=== PATIENT | male | born 1950 | race Caucasian/White ===

== ENCOUNTER → 2016-06-19 | Outpatient (REF) | payer MEDICARE, OTHER ==
[2016-06-19 18:45] LABS: PERCENT SATURATION 24.8 % (19.7-37.4)
== END ==
LOC: M LAB REF 16:27
PROVIDERS: ATTEND Internal Medicine
DX: L03.116 Cellulitis of left lower limb (principal); D86.89 Sarcoidosis of other sites; D64.9 Anemia, unspecified

== ENCOUNTER → 2016-06-28 | Outpatient (REF) | payer MEDICARE, OTHER | LOC: M LAB REF 16:19 | PROVIDERS: ATTEND Internal Medicine | DX: N39.0 Urinary tract infection, site not specified (principal) ==

== ENCOUNTER → 2016-08-22 | Outpatient (REF) | payer MEDICARE, OTHER | LOC: M LAB REF 16:54 | PROVIDERS: ATTEND Nurse Practitioner Family | DX: N39.0 Urinary tract infection, site not specified (principal) ==

== ENCOUNTER → 2016-10-23 | Outpatient (CLI) | payer MEDICARE, OTHER ==
--- NOTE | 2016-10-23 16:24 | REP ---
Clinical: Follow up scrotal mass lesions. Technique: Real time linder scale and color Doppler evaluation using linear high frequency transducer. Comparison: 04/10/2016, 02/28/2015. Findings: Vascularity to the bilateral testicles and epididymi are normal and symmetric without evidence for torsion or infectious/inflammatory process. Small bilateral hydroceles noted along with stable bilateral epididymal cysts measuring up to roughly 4 mm and right sided varicoceles measuring 4.3 mm diameter. The right testicle measures 3.2 x 2.2 x 2.8 cm and again includes a stable 5 mm hypoechoic nodule with posterior shadowing. The left testicle measures 3.5 x 2.1 x 2.7 cm and again includes a stable 5 mm hypoechoic nodule. Impression: 1. Stable nodules in the bilateral testicles are unchanged compared to 02/28/2015. 2. Small hydroceles, stable epididymal cysts, and right-sided varicoceles again noted and essentially unchanged. 3. No new intratesticular or scrotal lesions are appreciated. Signed by Haresh Tai MD 10/23/2016 04:15 P
[2016-10-23 19:38] LABS: CALCIUM LEVEL 8.4 MG/DL (8.8-10.2); CREATININE FOR GFR 1.43 MG/DL (0.70-1.30); GLOMERULAR FILTRATION RATE 52.5 (>49)
[2016-10-23 19:50] LABS: MEAN CORPUSCULAR HEMOGLOBIN 33.5 pg (27.0-33.0); MEAN CORPUSCULAR VOLUME 98.4 fl (80.0-96.0); RED CELL DISTRIBUTION WIDTH 17.4 % (11.5-14.5); WHITE BLOOD COUNT 7.1 K/mm3 (4.0-10.0)
== END ==
LOC: M SMT 14:21
PROVIDERS: ATTEND Urology
DX: N50.9 Disorder of male genital organs, unspecified (principal)

== ENCOUNTER → 2016-10-24 | Outpatient (REF) | payer MEDICARE, OTHER | LOC: M SMT 17:23 | PROVIDERS: ATTEND Urology | DX: N50.9 Disorder of male genital organs, unspecified (principal) ==

== ENCOUNTER → 2017-01-17 | Outpatient (REF) | payer MEDICARE, OTHER ==
[~2017-01-17] MED LIST: ACET650T3 PO; ACID1CAP PO; ALPH0.156 OU; AMIT24CA7 PO; ANDR1.62 TD; BACT800T5 PO; CEFD1CAP8 PO; CONS10SO3 PO; CRAN250C2 PO; DURA75DI2 TD; FLOM5CAP PO; FOLI1TAB4 PO; GABA-283 PO; GLIM2TAB PO; GLIM4TAB PO; INFL10VL IV; INSUDET SC; LEVO75TA4 PO; MACR100C43 PO; MAGN400T5 PO; METH25IN5 INJ; MIRA3350 PO; NYST1POW9 TOP; OCEA0.654; OSTETAB4 PO; OXYC10TA12 PO; PENN1SOL2 TD; PRED20TA PO; PROB1TAB PO; RANI150T PO; SERT50TA PO; SITA50TAB PO; SPIR25TA2 PO; TIMO0.5S29 OU; TORS100T PO; ZANA4TAB PO
[2017-01-17 19:12] LABS: PERCENT SATURATION 20.9 % (19.7-50.0)
== END ==
LOC: M LAB REF 15:17
PROVIDERS: ATTEND Internal Medicine Medical Oncology
DX: Z87.440 Personal history of urinary (tract) infections (principal); N39.0 Urinary tract infection, site not specified; D64.9 Anemia, unspecified

== ENCOUNTER 2017-01-22 10:15 | Inpatient (IN) | payer MEDICARE, OTHER ==
[~2017-01-22] VITALS: Ht 180.3 cm; Wt 164.3 kg
[2017-01-22] MEDS ORDERED: NS 1,000 ML IV ONE (10:30)
[2017-01-22] MEDS ORDERED: DEXTROSE 50% 50 ML SYRINGE IV STA (10:31)
[2017-01-22 10:45] LABS: ABG BASE EXCESS 3.4 (-2.0-2.0); ABG HCO3 27.2 MEQ/L (22.0-26.0); ABG PARTIAL PRESSURE CO2 37.9 mmHg (35.0-45.0); ABG PARTIAL PRESSURE O2 230.4 mmHg (75.0-100.0); ABG STANDARD HCO3 27.5 MEQ/L (22.0-26.0); ABG TOTAL CO2 28.3 MEQ/L (23.0-31.0); ABG pH (ARTERIAL) 7.473 UNITS (7.350-7.450)
[2017-01-22 11:09] LABS: BASO % 0.2 % (0.0-1.0); EOS % 0.3 % (0.0-3.0); LYMPH % 5.9 % (24.0-44.0); MEAN CORPUSCULAR HEMOGLOBIN 36.3 pg (27.0-33.0); MEAN CORPUSCULAR HGB CONC 32.9 g/dl (32.0-36.5); MONO # 0.1 10^3/uL (0.0-0.8); NEUTROPHILS # 5.3 10^3/uL (1.8-7.7); PLATELET COUNT, AUTOMATED 104 10^3/uL (150-450); RED CELL DISTRIBUTION WIDTH 15.7 % (11.5-14.5); WHITE BLOOD COUNT 5.9 10^3/uL (4.0-10.0)
[2017-01-22 11:13] LABS: INR 1.19
[2017-01-22 11:19] LABS: ADD MORPHOLOGY? YES; LYMPH # 0.4 10^3/uL (1.5-4.5); MEAN CORPUSCULAR VOLUME 110.3 fl (80.0-96.0); NEUTROPHILS % 90.6 % (36.0-66.0)
[2017-01-22 11:26] LABS: ALBUMIN 2.7 GM/DL (3.2-5.2); ALBUMIN/GLOBULIN RATIO 0.77 (1.00-1.93); ALKALINE PHOSPHATASE 52 U/L (45-117); ALT/SGPT 22 U/L (12-78); AMYLASE 35 U/L (25-115); ANION GAP 8 MEQ/L (8-16); AST/SGOT 12 U/L (15-37); BILIRUBIN,DIRECT 0.2 MG/DL (0.0-0.2); BLOOD UREA NITROGEN 49 MG/DL (7-18); CALCIUM LEVEL 8.3 MG/DL (8.8-10.2); CARBON DIOXIDE LEVEL 27 MEQ/L (21-32); CHLORIDE LEVEL 109 MEQ/L (98-107); CREATININE FOR GFR 1.22 MG/DL (0.70-1.30); GLOMERULAR FILTRATION RATE > 60.0 (>49); GLUCOSE, FASTING 62 MG/DL (80-110); POTASSIUM SERUM 2.9 MEQ/L (3.5-5.1); SODIUM LEVEL 144 MEQ/L (136-145); TOTAL PROTEIN 6.2 GM/DL (6.4-8.2)
--- NOTE | 2017-01-22 11:30 | REP ---
CT Head without contrast HISTORY: Altered mental status COMPARISON: 04/09/2011 Areas of decreased attenuation are present in the periventricular and subcortical white matter. This represents small-vessel ischemic disease. There is no intraparenchymal hemorrhage, acute infarct, mass or midline shift. The ventricular system and cortical sulci are dilated consistent with moderate volume loss. There is no extra cerebral collection. There is no fracture. Mucosal thickening is present in the ethmoid sinuses. IMPRESSION: 1. Small vessel ischemic disease. 2. Moderate volume loss. Signed by Jamie Gunter MD 01/22/2017 11:21 A
--- NOTE | 2017-01-22 11:39 | REP ---
CHEST SINGLE VIEW: AP portable view of the chest is performed and compared to a prior study of 12/19/2012. The film is obtained using AP supine technique, which magnifies the cardiomediastinal silhouette and also causes mild prominence of the pulmonary vasculature. There is calcification and ectasia of the thoracic aorta. No infiltrate is seen in either lung. There is mild elevation of the right hemidiaphragm. IMPRESSION: No evidence of acute infiltrate. Signed by David Rojas MD 01/22/2017 05:22 P
[2017-01-22] MEDS ORDERED: LEVO75TA4 PO (11:44)
[2017-01-22] MEDS ORDERED: FLOM5CAP PO (11:44)
[2017-01-22] MEDS ORDERED: CRAN250C2 PO (11:44)
[2017-01-22] MEDS ORDERED: INSUDET SC (11:44)
[2017-01-22] MEDS ORDERED: DURA75DI2 TD (11:44)
[2017-01-22] MEDS ORDERED: SERT50TA PO (11:44)
[2017-01-22] MEDS ORDERED: RANI150T PO (11:44)
[2017-01-22] MEDS ORDERED: NYST1POW9 TOP (11:44)
[2017-01-22] MEDS ORDERED: GABA-283 PO (11:44)
[2017-01-22] MEDS ORDERED: ALPH0.156 OU (11:44)
[2017-01-22] MEDS ORDERED: SITA50TAB PO (11:44)
[2017-01-22] MEDS ORDERED: ZANA4TAB PO (11:44)
[2017-01-22] MEDS ORDERED: SPIR25TA2 PO (11:44)
[2017-01-22] MEDS ORDERED: PENN1SOL2 TD ×2 (11:44→13:18)
[2017-01-22] MEDS ORDERED: INFL10VL IV (11:44)
[2017-01-22] MEDS ORDERED: GLIM4TAB PO (11:44)
[2017-01-22] MEDS ORDERED: CONS10SO3 PO (11:44)
[2017-01-22] MEDS ORDERED: OXYC10TA12 PO (11:44)
[2017-01-22] MEDS ORDERED: AMIT24CA7 PO (11:44)
[2017-01-22] MEDS ORDERED: PRED20TA PO (11:44)
[2017-01-22] MEDS ORDERED: GLIM2TAB PO (11:44)
[2017-01-22] MEDS ORDERED: OSTETAB4 PO (11:44)
[2017-01-22] MEDS ORDERED: TORS100T PO (11:44)
[2017-01-22] MEDS ORDERED: TIMO0.5S29 OU (11:44)
[2017-01-22] MEDS ORDERED: ANDR1.62 TD (11:44)
[2017-01-22] MEDS ORDERED: FOLI1TAB4 PO (11:44)
[2017-01-22] MEDS ORDERED: BACT800T5 PO (11:44)
[2017-01-22] MEDS ORDERED: PROB1TAB PO (11:44)
[2017-01-22] MEDS ORDERED: KCL 10MEQ IN 100ML SWI (KRUN) 10 MEQ in APPROPRIATE DILUENT 1 EA IV ONE ×2 (13:00)
[2017-01-22] MEDS ORDERED: MIRA3350 PO (13:07)
[2017-01-22] MEDS ORDERED: ACID1CAP PO (13:07)
[2017-01-22] MEDS ORDERED: ACET650T3 PO (13:07)
[2017-01-22] MEDS ORDERED: MAGN400T5 PO (13:07)
[2017-01-22] MEDS ORDERED: MACR100C43 PO (13:08)
[2017-01-22 13:15] VITALS: O2SAT 97
[2017-01-22] MEDS ORDERED: OCEA0.654 (13:16)
--- NOTE | 2017-01-22 13:18 | HPEPDOC ---
[facility] Medical History & Physical Date of Admission Jan 22, 2017 History and Physical ATTENDING: Dr. Birch PCP: Dr Sierra CC: Pt was found unresponsive at home. HPI: 66yoM who was found unresponsive at home after an unknown amount of time. EMS summoned and brought to ED for evaluation. Pt was obtunded on arrival to ED. Pt will briefly arouse and answer a few questions. Pt was initially noted with BS of 68, improved S/P dextrose IV. Noted with BP 80s systolic, now improved 90s-100s with IVF x 1 liter in ED. Temp initially 100.4, decreased to 99.4. Denies pain, SOB. Has no specific complaints. Pt son is at bedside and states he has had three episodes similar to this this year with severe UTI. Pt has been hospitalized for same issue at [facility] in [place]. Pt son states he has home health aides 18-20 hrs per day, takes care of him as well but she is also brought to the ED today. Pt was advised to CIC as per Dr Gregg when seen there 01/03/17. Was also noted to have UTI 01/17/17 E Coli and was placed on Macrobid. Pt son unaware of any recent fevers, chills, weakness, fatigue, TIWARI, CP, SOB, cough, palpitations, abdominal pain, N/V/D or changes in bowel habits. Pt has had urinary retention and son states he was not sure status of CIC. Pt with chronic constipation. Upon presentation to the hospital the patient was found to have UTI, thus the hospitalist team was consulted. PMHx: GERD NEPHROLITHIASIS H/O Chronic UTI/Recurrent UTI. HUDSON/CPAP RBBB NEUROPATHY Chronic back pain/Spinal Stenosis Chronic pain NEUROSARCOIDOSIS. Follows with Neurology [facility]/Dr Whaley H/O TIA IDDM AMYLODOSIS urinary retention, CIC as per Dr Gregg. RLE ulcer. Stillerman BPH Non ambulatory. Uses lift at home. Glaucoma Hypomagnesemia Chronic constipation depression PSHX: LASER LITHOTRIPSY 2006 UMBILICAL HERNIORRHAPHY 2005 L KNEE REPLACEMENT 2007 RT CARPAL TUNNEL RELEASE 2009 LUMBAR PUNCTURE 12/2012 EGD Mayra 05/10. Gastritis. Colonoscopy Mayra 05/10. Adenomatous polyp. SOCHX: Resides in: At home with , [employer] 18-20 hrs per day. 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 Siblings: Alive, well Children: Alive, well Unexpected deaths due to medical reasons: None. ROS: History is taken from the Pt's son, Pt provided limited responses at this time. PE: GEN: 66yoM, appears stated age. Morbidly obese. No acute distress resting on the stretcher. He is sleeping but arouses to questions and is oriented to person and place currently. He will answer a few questions with short replies. HEENT: Normocephalic, atraumatic. Pupils are equal, round, and reactive to light. Extraocular movements are intact. No nystagmus appreciated. Sclera are nonicteric. Conjunctiva without injection. Nose midline. No facial asymmetry.Dry mucous membranes. Dentition poor. Pharynx dry appearing. Neck supple, trachea midline. No lymphadenopathy or thyromegaly appreciated. CHEST: Regular rate and rhythm, +S1, +S2 LUNGS: Decreased BS bilaterally but clear. No wheezes, rales, or rhonchi. Breathing appears symmetric and easy. No accessory muscle use. ABD: Obese, Round, soft, Mild TTP suprapubic area, non-distended. +Bowel sounds throughout. No rebound or guarding. Barraza in place. EXT: No lower extremity edema appreciated. SKIN: Pt with ecchymotic area left shoulder. Skin tears noted LLE. Skin ulcer RLE, healing (follows with Dr Huang). NEURO: Alert and oriented. No focal deficits appreciated. CT head 1. Small vessel ischemic disease. 2. Moderate volume loss. CXR No evidence of acute infiltrate. EKG: SB, PVC, LAD, RBBB. BLOOD CULTURES: x 2 pending UC pending. A&P: 66yoM who was found unresponsive at home after an unknown amount of time. EMS summoned and brought to ED for evaluation. Pt will briefly arouse and answer a few questions. Denies pain, SOB. Has no specific complaints. Pt son is at bedside and states he has had three episodes similar to this this year with severe UTI. Pt has been hospitalized for same issue at [facility] in [place]. 1. The patient will be admitted to PCU for at least [address] Butler's service. Pt is discussed with Dr Saba. 2. UTI/Sepsis. UC/BC pending. IVF x 1 liter in ED, continue with IVF at 75cc/ hr. Rocephin 1 gm IV Q24 hrs, first dose given in ED. UC E Coli noted 01/17/17 sensitive to Rocephin. Trend CRP. 3. H/O Nephrolithiasis. Renal U/S pending (R/O obstruction). 4. Hypokalemia. S/P IV and po supplement. Rechk BMP at 6 pm. Add mag level to labs. 5. Urinary retention. Barraza. Pt is on BPH as outpt. Instructed for CIC as per Urology. 6. IDDM. PO meds on hold. CC diet. Levemir reduced to 15 u PM/SSI. 7. Hypothyroid. Continue supplement. TSH pending. 8. chronic pain. Continue Fentanyl patch. Hold Gabapentin/Oxycodone/Zanaflex temporarily. 9. M Obesity. Complicates care. 10. LE skin tears/H/O Ulcer RLE. Wound care. 11. HUDSON. CPAP with home settings. 12. Hypomag. Cont po supplement. Add mag level. 13. Neurosarcoidosis. Follows with Neurology [facility]/Dr Whaley. 14. CHF. Hold Aldactone and Torsemide currently. Caution with IVF. 15. Glaucoma. Cont outpt regimen. 16. Anemia. Appears to be chronic however trending downward from Hgb 13s 10/12, to 10 11/12 to currently 8.1. Recheck CBC at 6 PM. Add peripheral smear. Iron studies completed 01/17/17. Add B12/folate to labs. Stool OB. Monitor Hgb. [place]/ EGD 05/10, Mayra. 17. Chronic constipation. Continue bowel care. 18. Depression. Zoloft. DVT prophylaxis. The patient is a Full code. Attending Update/Attestation: Patient found to have bilateral ureteral calculi with bilateral hydronephrosis on Renal U/S and CT Scan of the Abd--Urology contacted, patient will be taken for ureteral stent placement this evening with Dr. Lassiter. Vital Signs Vital Signs Date Time Temp Pulse Resp B/P (MAP) Pulse Ox O2 Delivery O2 Flow Rate FiO2 01/22/17 13:15 97 Nasal Cannula 3.0 01/22/17 12:59 97 01/22/17 12:32 99.4 106/63 (77) 01/22/17 12:15 86 01/22/17 10:17 24 Laboratory Data Labs 24H Laboratory Tests 2 01/22/17 10:30: Bedside Gl[facility]) 68L, Blood Gas Bicarbonate Standard 27.5H, Arterial Blood pH 7.473H, Arterial Blood Partial Pressure CO2 37.9, Arterial Blood Partial Pressure O2 230.4H, Arterial Blood Total CO2 28.3, Arterial Blood HCO3 27.2H, Arterial Blood Base Excess 3.4H, Arterial Blood Oxygen Saturation 99.5H 01/22/17 10:35: White Blood Count 5.9, Red Blood Count 2.23L, Hemoglobin 8.1L, Hematocrit 24.6L , Mean Corpuscular Volume 110.3H, Mean Corpuscular Hemoglobin 36.3H, Mean Corpuscular Hemoglobin Concent 32.9, Red Cell Distribution Width 15.7H, Platelet Count 104L, Neutrophils (%) (Auto) 90.6H, Lymphocytes (%) (Auto) 5.9L, Monocytes (%) (Auto) 2.0, Eosinophils (%) (Auto) 0.3, Basophils (%) (Auto) 0.2, Neutrophils # (Auto) 5.3, Lymphocytes # (Auto) 0.4L, Monocytes # (Auto) 0.1, Eosinophils # (Auto) 0.0, Basophils # (Auto) 0.0, Immature Granulocyte # (Auto) 0.1H, Nucleated Red Blood Cells % (auto) 0.5H, Platelet Estimate DECREASED, Macrocytosis 1+, Prothrombin Time 15.3H, Prothromb Time International Ratio 1.19 , Activated Partial Thromboplast Time 32.3, Anion Gap 8, Glomerular Filtration Rate > 60.0, Lactic Acid Level 0.8, Calcium Level 8.3L, Aspartate Amino Transf ( AST/SGOT) 12L, Alanine Aminotransferase (ALT/SGPT) 22, Alkaline Phosphatase 52, Total Bilirubin 1.0, Direct Bilirubin 0.2, Ammonia 28, Total Creatine Kinase 12L , Creatine Kinase MB 1.0, Creatine Kinase MB Relative Index 8.33H, Troponin I 0.03, C-Reactive Protein, Quantitative 3.93H, Total Protein 6.2L, Albumin 2.7L, Albumin/Globulin Ratio 0.77L, Amylase Level 35 01/22/17 10:44: Urine Appearance HAZY, Urine Color YELLOW, Urine pH 5.0, Urine Specific [place] 1.008, Urine Protein NEGATIVE, Urine Glucose (UA) NEGATIVE, Urine Ketones NEGATIVE, Urine Urobilinogen 0.2, Urine Bilirubin NEGATIVE, Urine Leukocyte Esterase 3+H, Urine Blood NEGATIVE, Urine Nitrite NEGATIVE, Urine WBC (Auto) 52H , Urine RBC (Auto) 4H, Urine Hyaline Casts (Auto) 0, Urine Bacteria (Auto) 3+H, Urine Squamous Epithelial Cells 0, Urine Mucus (Auto) SMALL, Urine Sperm (Auto) 01/22/17 12:06: Bedside Glucose ([facility]) 107 CBC/BMP Laboratory Tests 01/22/17 10:35 Red Blood Count 2.23 L, Mean Corpuscular Volume 110.3 H, Mean Corpuscular Hemoglobin 36.3 H, Mean Corpuscular Hemoglobin Concent 32.9, Red Cell Distribution Width 15.7 H, Neutrophils (%) (Auto) 90.6 H, Lymphocytes (%) (Auto ) 5.9 L, Monocytes (%) (Auto) 2.0, Eosinophils (%) (Auto) 0.3, Basophils (%) ( Auto) 0.2, Neutrophils # (Auto) 5.3, Lymphocytes # (Auto) 0.4 L, Monocytes # ( Auto) 0.1, Eosinophils # (Auto) 0.0, Basophils # (Auto) 0.0 Microbiology Microbiology 01/22/17 Blood Culture, Received Pending 01/22/17 Blood Culture, Received Pending 01/22/17 Urine Culture, Received Pending Home Medications Scheduled (Androgel Pump) 1.62 % Gel, 4 DOSE TD DAILY APPLIED TO SHOULDERS (Amitiza) 24 Mcg Cap, 24 MCG PO DAILY (Osteo Bi-Flex Advanced Do) 1 Tab Tab, 2 TAB PO DAILY (Probiotic) 1 Tab Tab, 1 TAB PO DAILY (Acidophilus) 1 Cap Cap, 1 CAP PO DAILY (Pennsaid) 2 % Henna, 2 GRAMS TD QID (Methotrexate Sodium) Unknown Strength Inj, Unknown Dose INJ QWEEK Acetaminophen (Acetaminophen ER) 650 Mg Tab, 650 MG PO BID Brimonidine Tartrate 0.15% (Alphagan P) 0.15 % Henna, 1 DROP OU QHS Cranberry Extract (Cranberry) 250 Mg Cap, 250 MG PO DAILY Fentanyl (Duragesic) 75 Mcg/Hr Dis, 75 MCG TD Q3RD APPLIED TO RIGHT SHOULDER Folic Acid (Folic Acid) 1 Mg Tab, 1 MG PO 5XW MON,TUES,WED,SAT,SUN Gabapentin (Gabapentin) 400 Mg Cap, 1,600 MG PO BID Glimepiride (Glimepiride) 4 Mg Tab, 4 MG PO BID Infliximab Injection (Remicade) Unknown Strength Vial, Unknown Dose IV QMONTH Insulin Detemir (Levemir) 1 Units/0.01 Ml Susp, 35 UNITS SC QHS TITRATES DIRECTED, MDD=50 UNITS Lactulose (Constulose) 10 Gm/15 Ml Henna, 30 ML PO QHS Levothyroxine Sodium (Synthroid) 75 Mcg Tab, 75 MCG PO DAILY Magnesium Oxide (Magnesium Oxide 400) 400 Mg Tab, 800 MG PO DAILY Nitrofurantoin Monohydrate Mac (Macrobid) 100 Mg Cap, 100 MG PO BID STARTED 01/18 FOR 7 DAYS Polyethylene Glycol (Miralax) 1 Pow Pow, 17 GM PO QHS dilute in 8 ounces of water or juice Prednisone (Prednisone) 20 Mg Tab, 20 MG PO DAILY Ranitidine HCl (Ranitidine HCl) 150 Mg Tab, 1 TAB PO BID Sertraline Hcl (Sertraline HCl) 50 Mg Tab, 50 MG PO DAILY Sitagliptin (Januvia) 50 Mg Tab, 50 MG PO DAILY Sodium Chloride ([place] Nasal [place]) 0.65 % Spr, 2 SPRAY NA QHS EACH NOSTRIL Spironolactone (Spironolactone) 25 Mg Tab, 25 MG PO DAILY Tamsulosin Hydrochloride (Flomax) 0.4 Mg Cap, 0.4 MG PO QHS Timolol Maleate (Timolol Maleate) 0.5 % Henna, 1 DROP OU BID Tizanidine Hydrochloride (Zanaflex) 4 Mg Tab, 8 MG PO QHS Torsemide (Torsemide) 100 Mg Tab, 50 MG PO BID Trimethoprim/Sulfamethoxazole (Bactrim Ds 800-160 mg) 1 Tab Tab, 1 TAB PO 3XW TUES,THURS,SAT Scheduled PRN Nystatin (Nystatin Powder) 100,000 Unit/Gm Pow, 1 DOSE TOP for RASH Oxycodone HCl (Oxycodone HCl) 10 Mg Tab, 10 MG PO BID PRN for PAIN Allergies Coded Allergies: No Known Drug Allergy (Verified Allergy, Unknown, 08/01/12) Clindamycin (Verified Adverse Reaction, Unknown, DIARRHEA, 08/01/12) Lilia Allen Jan 22, 2017 13:18 EDMUND SABA MD Jan 22, 2017 19:37
[2017-01-22] MEDS ORDERED: METH25IN5 INJ (13:20)
[2017-01-22] MEDS ORDERED: cefTRIAXone SOD 1 GM in D5W MINI-BAG PLUS 50 ML IV ONE (13:30)
[2017-01-22] MEDS ORDERED: NS 1,000 ML IV SCH (14:00)
[2017-01-22] MEDS ORDERED: GLUCOSE 4 GM CHEW TABLET PO PRN (14:15)
[2017-01-22] MEDS ORDERED: GLUCAGON FOR INJ 1 MG VIAL (J1610) SC PRN (14:15)
[2017-01-22] MEDS ORDERED: DEXTROSE 50% 50 ML SYRINGE IV PRN (14:15)
[2017-01-22] MEDS ORDERED: NYSTATIN 100,000 UNITS/GM TOPICAL PWD 15 GM TOP PRN (14:15)
[2017-01-22 14:43] LABS: REASON FOR REVIEW COMPREHENSIVE REVIEW
[2017-01-22] MEDS: KCL 10MEQ IN 100ML SWI (KRUN) 10 MEQ in APPROPRIATE DILUENT 1 EA IV SCH ×6 (14:55→18:19)
[2017-01-22] MEDS ORDERED: POTASSIUM CHLORIDE 10 MEQ SR TABLET PO ONE ×2 (15:00→21:45)
[2017-01-22 15:30] LABS: MAGNESIUM LEVEL 2.1 MG/DL (1.8-2.4)
--- NOTE | 2017-01-22 15:54 | REP ---
Renal ultrasound: The kidneys are normal size. Right kidney measures 14.5 by 5.7 by 6.6 centimeters. Left kidney measures 15.4 x 7.0 x 7.8 cm. There is bilateral hydronephrosis. There are no renal masses or cysts. No calculi are identified. Bladder ultrasound: There is a Barraza catheter in the bladder is nondistended and cannot be evaluated. Impression: Bilateral hydronephrosis. Signed by David Ramos MD 01/22/2017 03:45 P
[2017-01-22 15:58] LABS: FOLATE 21.2 NG/ML (>5.4); VITAMIN B12 LEVEL 608 PG/ML (247-911)
[2017-01-22] MEDS ORDERED: HumaLOG INSULIN (NovoLOG) PER UNIT SC SCH ×2 (17:30→21:00)
[2017-01-22 17:43] VITALS: BP 136/61
--- NOTE | 2017-01-22 18:07 | REP ---
CT of the abdomen pelvis without IV or bowel contrast: The patient had bilateral hydronephrosis on ultrasound earlier today. There is marked left hydronephrosis and hydroureter. There are multiple calcifications in the distal left ureter, at least four. The largest calculus is the superior most calculus which measures 11 x 7 mm. There is a calculus in the distal right ureter measuring 90 by 5 mm. There is a Barraza catheter in the bladder. The bladder is collapsed. No bladder calculi are identified. There are multiple right renal calculi in the posterior kelly at the mid pole and total measuring 19 by 9 mm. There are no left renal calculi. No definite renal cysts are identified. The study is insensitive for renal masses in the absence of IV contrast. The visualized lung myers are unremarkable. The unenhanced hepatic parenchyma demonstrates a cyst posteriorly in the right lobe of the liver measuring 2.4 cm in diameter. The hepatic parenchyma is otherwise unremarkable. The spleen measures 16 cm craniocaudad length. There is splenomegaly. There is a low density or a 1 cm right adrenal nodule measuring CT density of -13 Hounsfield units, compatible with a benign adrenal adenoma. The left adrenal is unremarkable. The abdominal aorta is unremarkable. There is no bowel distension or obstruction. Pelvis: There is a large fecal impaction in the rectosigmoid colon. There is abundant fecal residue throughout the remainder of the colon. There is no ascites or adenopathy. There is abdominal pannus hanging inferiorly over the pubic symphysis. Impression: Bilateral ureteral calculi as described. Bilateral hydronephrosis. Nonobstructive right renal calculi. No left renal calculi. Splenomegaly. 1 cm benign adenoma in the right adrenal. Fecal impaction and abundant fecal residue throughout the colon. Barraza catheter in the bladder. Signed by David Ramos MD 01/22/2017 05:58 P
[2017-01-22 18:08] LABS: MEAN CORPUSCULAR HEMOGLOBIN 36.7 pg (27.0-33.0); MEAN CORPUSCULAR HGB CONC 33.1 g/dl (32.0-36.5); PLATELET COUNT, AUTOMATED 91 10^3/uL (150-450); RED CELL DISTRIBUTION WIDTH 15.9 % (11.5-14.5); WHITE BLOOD COUNT 4.9 10^3/uL (4.0-10.0)
[2017-01-22 18:12] LABS: MEAN CORPUSCULAR VOLUME 111.1 fl (80.0-96.0)
[2017-01-22] MEDS: SERTRALINE HCL 50 MG TAB PO SCH (18:17)
[2017-01-22] MEDS: ENOXAPARIN 40 MG/0.4 ML SYRINGE (J1650) SC SCH ×2 (18:17→18:21)
[2017-01-22] MEDS: MAGNESIUM OXIDE 400 MG TAB (MAG-OX) PO SCH (18:18)
[2017-01-22 18:48] LABS: ALBUMIN 2.7 GM/DL (3.2-5.2); ALBUMIN/GLOBULIN RATIO 0.93 (1.00-1.93); ALKALINE PHOSPHATASE 50 U/L (45-117); ALT/SGPT 22 U/L (12-78); ANION GAP 9 MEQ/L (8-16); AST/SGOT 18 U/L (15-37); BILIRUBIN,TOTAL 0.9 MG/DL (0.2-1.0); BLOOD UREA NITROGEN 46 MG/DL (7-18); CALCIUM LEVEL 7.8 MG/DL (8.8-10.2); CARBON DIOXIDE LEVEL 26 MEQ/L (21-32); CHLORIDE LEVEL 110 MEQ/L (98-107); CREATININE FOR GFR 1.21 MG/DL (0.70-1.30); GLOMERULAR FILTRATION RATE > 60.0 (>49); GLUCOSE, FASTING 156 MG/DL (80-110); POTASSIUM SERUM 3.5 MEQ/L (3.5-5.1); SODIUM LEVEL 145 MEQ/L (136-145); TOTAL PROTEIN 5.6 GM/DL (6.4-8.2)
[2017-01-22 20:00] VITALS: BP 122/63
[2017-01-22] MEDS: FENTANYL REMOVAL DOCUMENTATION MISC XX SCH (21:00)
[2017-01-22] MEDS ORDERED: LEVEMIR (INSULIN DETEMIR) 1 UNITS/0.01ML SC SCH ×2 (21:00)
[2017-01-22] MEDS: TAMSULOSIN 0.4 MG CAP PO SCH (21:46)
[2017-01-22] MEDS: ACETAMINOPHEN 650MG ER TAB (TYLENOL ARTHRITIS) PO SCH (21:46)
[2017-01-22] MEDS: FAMOTIDINE 20 MG TAB PO SCH (21:46)
[2017-01-22] MEDS: LACTULOSE 20 GM/30 ML SYRUP UD PO SCH (21:46)
[2017-01-22] MEDS: TIMOLOL MALEATE 0.5% OPHTH SOLN 5 ML OU SCH ×2 (21:47→22:20)
[2017-01-22] MEDS: SODIUM CHLORIDE NASAL 0.65% SPRAY BTL (OCEAN) SCH (21:47)
[2017-01-22] MEDS: BRIMONIDINE 0.15% OPHTH SOLN 5 ML OU SCH (21:47)
[2017-01-22] MEDS: MIRALAX *UNIT DOSE* 17GM PACKET PO SCH (21:47)
[2017-01-22] MEDS: fentaNYL 75 MCG/HR PATCH TD SCH (21:49)
[2017-01-22] MEDS: HEPARIN SOD (PORCINE) 5000 UNITS/ML VIAL SQ SCH (22:00)
--- NOTE | 2017-01-22 23:40 | SMCUROLCON ---
Urology Consultation General Date of Consultation 01/22/17 Reason For Consultation This patient is seen for General Weakness. History of Present Illness This is a 66 y/o M w/ a PMH significant for neurosarcoidosis, nephrolithiasis, HUDSON, and DM2, who presented to the ER today w/ complaints of generalized weakness. The patient was subsequently admitted to the hospitalist service and a CT A/P was performed and notable for b/l hydroureteronephrosis due to b/l obstructing distal ureteral stones. The patient denies flank or abdominal pain. He is a patient of Dr. Gregg, and his family has been performing CIC for urinary retention. He notes that he has a UTI and had been running fevers at home. Past Medical History Medical History see HPI Medications Current Medications Current Medications Acetaminophen (Tylenol Arthritis Er) 650 mg BID PO Last administered on 21:46; Start 01/22/17 at 21:00; Stop 02/21/17 at 20:59 Brimonidine Tartrate (Alphagan P 0.15%) 1 drop QHS OU Last administered on 01/22 21:47; Start 01/22/17 at 21:00; Stop 02/21/17 at 20:59 Ceftriaxone Sodium 1 gm/ Dextrose 50 ml @ 100 mls/hr Q24H IV ; Start 01/23/17 at 13:00; Stop 01/30/17 at 12:59 Dextrose (Dextrose 50%) 25 ml ASDIRECTED PRN IV SEE LABEL COMMENTS; Start 01/22 at 14:15; Stop 02/21/17 at 14:14 Dextrose (Dextrose 50%) 50 ml STAT STAT IV Last administered on 01/22/17 11: 02; Start 01/22/17 at 10:31; Stop 01/22/17 at 10:32; Status DC Enoxaparin Sodium (Lovenox) 40 mg DAILY SC ; Start 01/22/17 at 09:00; Stop 01/22 at 21:40; Status DC Famotidine (Pepcid) 20 mg BID PO Last administered on 01/22/17 21:46; Start at 21:00; Stop 02/21/17 at 20:59 Fentanyl (Duragesic) 75 mcg Q3D@2100 TD Last administered on 01/22/17 21:49; Start 01/22/17 at 21:00; Stop 01/29/17 at 20:59 Glucagon (Glucagon) 1 mg ASDIRECTED PRN SC SEE LABEL COMMENTS; Start 01/22/17 at 14:15; Stop 02/21/17 at 14:14 Glucose (Glucose) 16 GM ASDIRECTED PRN PO SEE LABEL COMMENTS; Start 01/22/17 at 14:15; Stop 02/21/17 at 14:14 Heparin Sodium (Porcine) (Heparin) 5,000 units Q8H SQ ; Start 01/22/17 at 22:00 ; Stop 01/27/17 at 21:59 Home Med (Med Rec Complete!) ASDIRECTED XX ; Start 01/22/17 at 13:30; Stop at 13:30; Status DC Insulin Detemir (Levemir Insulin) 7.5 units QHS SC Last administered on 22:14; Start 01/22/17 at 21:00; Stop 02/21/17 at 20:59 Insulin Detemir (Levemir Insulin) 7.5 units QHS SC ; Start 01/23/17 at 21:00; Stop 01/23/17 at 21:00; Status DC Insulin Detemir (Levemir Insulin) 15 units QHS SC ; Start 01/22/17 at 21:00; Stop 02/21/17 at 20:59; Status Cancel Insulin Human Lispro (HumaLOG INSULIN) See Protocol Table AC SC ; Start at 17:30; Stop 02/21/17 at 17:29 Insulin Human Lispro (HumaLOG INSULIN) See Protocol Table QHS SC ; Start at 21:00; Stop 02/21/17 at 20:59 Lactulose (Cephulac) 30 ml QHS PO Last administered on 01/22/17 21:46; Start 01/22/17 at 21:00; Stop 02/21/17 at 20:59 Levothyroxine Sodium (Synthroid) 75 mcg DAILY@0600 PO ; Start 01/23/17 at 06:00 ; Stop 02/22/17 at 05:59 Magnesium Oxide (Mag-Ox) 800 mg DAILY PO Last administered on 01/22/17 18:18; Start 01/22/17 at 09:00; Stop 02/21/17 at 08:59 Non-Formulary Medication ( See Comment Field Below ) SEE COMMENTS SECTION Q3D@2100 XX Last administered on 01/22/17 21:00; Start 01/22/17 at 21:00; Stop 01/29/17 at 20:59 Nystatin (Mycostatin Powder, Nystop) 1 dose BIDP PRN TOP RASH; Start 01/22/17 at 14:15; Stop 02/21/17 at 14:14 Polyethylene Glycol (Miralax) 1 pkt QHS PO Last administered on 01/22/17 21:47 ; Start 01/22/17 at 21:00; Stop 02/21/17 at 20:59 Potassium Chloride 10 meq/ IV Miscellaneous Supplies 100 ml @ 100 mls/hr Q1H IV Last administered on 01/22/17 18:19; Start 01/22/17 at 15:00; Stop at 17:59; Status DC Prednisone (Deltasone) 20 mg DAILY PO ; Start 01/23/17 at 09:00; Stop 02/22/17 at 08:59; Status Cancel Sertraline HCl (Zoloft) 50 mg DAILY PO Last administered on 01/22/17 18:17; Start 01/22/17 at 09:00; Stop 02/21/17 at 08:59 Sodium Chloride 1,000 ml @ 100 mls/hr Q10H IV Last administered on 01/22/17 14:36; Start 01/22/17 at 14:00; Stop 01/23/17 at 01:54 Sodium Chloride ([place] Nasal [place]) 2 spray QHS NA Last administered on 21:47; Start 01/22/17 at 21:00; Stop 02/21/17 at 20:59 Tamsulosin HCl (Flomax) 0.4 mg QHS PO Last administered on 01/22/17 21:46; Start 01/22/17 at 21:00; Stop 02/21/17 at 20:59 Timolol Maleate (Timoptic 0.5% Ophth [place]) 1 drop BID OU ; Start 01/22/17 at 21: 00; Stop 02/21/17 at 20:59 Allergies Allergies: Coded Allergies: No Known Drug Allergy (Verified Allergy, Unknown, 08/01/12) Clindamycin (Verified Adverse Reaction, Unknown, DIARRHEA, 08/01/12) Review of Systems General: Reports: Fatigue Constitutional: Reports: Fever Skin: Denies: Rash, Lesions, Breakdown, Nail Changes Pulmonary: Denies: Dyspnea, Cough Cardiovascular: Denies Chest Pain, Denies Palpitations Gastrointestinal: Denies: Nausea, Vomiting, Abdominal Pain Genitourinary: Reports: Retention Musculoskeletal: Denies: Neck Pain, Back Pain Neurological: Reports: Weakness Physical Examination General Exam: Alert ENT EXAM: Atraumatic Chest Exam: Clear to auscultation Heart Exam: Rate Normal, Regular Rhythm Skin Exam: Nl turgor and temperature Neuro Exam: Normal Speech Vital Signs/I&O Vital Signs Date Time Temp Pulse Resp B/P (MAP) Pulse Ox O2 Delivery O2 Flow Rate FiO2 01/22/17 22:19 98.7 72 20 136/61 96 Room Air 2.0 97 I&O- Last 24 Hours up to 6 AM 01/23/17 06:00 Intake Total 2970 ml Output Total 3370 ml Balance -400 ml Laboratory Data 24H Labs Laboratory Tests 2 01/22/17 10:30: Bedside Glucose (Misc Panel) 68L, Blood Gas Bicarbonate Standard 27.5H, Arterial Blood pH 7.473H, Arterial Blood Partial Pressure CO2 37.9, Arterial Blood Partial Pressure O2 230.4H, Arterial Blood Total CO2 28.3, Arterial Blood HCO3 27.2H, Arterial Blood Base Excess 3.4H, Arterial Blood Oxygen Saturation 99.5H 01/22/17 10:35: White Blood Count 5.9, Red Blood Count 2.23L, Hemoglobin 8.1L, Hematocrit 24.6L , Mean Corpuscular Volume 110.3H, Mean Corpuscular Hemoglobin 36.3H, Mean Corpuscular Hemoglobin Concent 32.9, Red Cell Distribution Width 15.7H, Platelet Count 104L, Neutrophils (%) (Auto) 90.6H, Lymphocytes (%) (Auto) 5.9L, Monocytes (%) (Auto) 2.0, Eosinophils (%) (Auto) 0.3, Basophils (%) (Auto) 0.2, Neutrophils # (Auto) 5.3, Lymphocytes # (Auto) 0.4L, Monocytes # (Auto) 0.1, Eosinophils # (Auto) 0.0, Basophils # (Auto) 0.0, Immature Granulocyte # (Auto) 0.1H, Nucleated Red Blood Cells % (auto) 0.5H, Platelet Estimate DECREASED, Macrocytosis 1+, Prothrombin Time 15.3H, Prothromb Time International Ratio 1.19 , Activated Partial Thromboplast Time 32.3, Anion Gap 8, Glomerular Filtration Rate > 60.0, Lactic Acid Level 0.8, Calcium Level 8.3L, Magnesium Level 2.1, Aspartate Amino Transf (AST/SGOT) 12L, Alanine Aminotransferase (ALT/SGPT) 22, Alkaline Phosphatase 52, Total Bilirubin 1.0, Direct Bilirubin 0.2, Ammonia 28, Total Creatine Kinase 12L, Creatine Kinase MB 1.0, Creatine Kinase MB Relative Index 8.33H, Troponin I 0.03, C-Reactive Protein, Quantitative 3.93H, Total Protein 6.2L, Albumin 2.7L, Albumin/Globulin Ratio 0.77L, Amylase Level 35, Vitamin B12 Level 608, Folate 21.2 01/22/17 10:44: Urine Appearance HAZY, Urine Color YELLOW, Urine pH 5.0, Urine Specific [place] 1.008, Urine Protein NEGATIVE, Urine Glucose (UA) NEGATIVE, Urine Ketones NEGATIVE, Urine Urobilinogen 0.2, Urine Bilirubin NEGATIVE, Urine Leukocyte Esterase 3+H, Urine Blood NEGATIVE, Urine Nitrite NEGATIVE, Urine WBC (Auto) 52H , Urine RBC (Auto) 4H, Urine Hyaline Casts (Auto) 0, Urine Bacteria (Auto) 3+H, Urine Squamous Epithelial Cells 0, Urine Mucus (Auto) SMALL, Urine Sperm (Auto) 01/22/17 12:06: Bedside Glucose (Misc Panel) 107 01/22/17 13:58: Differential Slide Review Report, Differential Pathologist's Review COMPREHENSIVE REVIEW, Peripheral Blood Smear Path Consult PERIPHERAL SMEAR 01/22/17 14:26: Bedside Glucose (Misc Panel) 90 01/22/17 17:50: Bedside Glucose (Misc Panel) 158H 01/22/17 17:54: Anion Gap 9, Glomerular Filtration Rate > 60.0, Blood Urea Nitrogen 46H, Creatinine 1.21, Sodium Level 145, Potassium Level 3.5#, Chloride Level 110H, Carbon Dioxide Level 26, Calcium Level 7.8L, Aspartate Amino Transf (AST/SGOT) 18, Alanine Aminotransferase (ALT/SGPT) 22, Total Creatine Kinase 25#L, Alkaline Phosphatase 50, Total Bilirubin 0.9, Total Protein 5.6L, Albumin 2.7L, Creatine Kinase MB 1.0, Creatine Kinase MB Relative Index 4.00, Troponin I 0.06# , Albumin/Globulin Ratio 0.93L 01/22/17 21:04: Bedside Glucose ([facility] Panel) 189H CBC/BMP Laboratory Tests 01/22/17 10:35 Red Blood Count 2.23 L, Mean Corpuscular Volume 110.3 H, Mean Corpuscular Hemoglobin 36.3 H, Mean Corpuscular Hemoglobin Concent 32.9, Red Cell Distribution Width 15.7 H, Neutrophils (%) (Auto) 90.6 H, Lymphocytes (%) (Auto ) 5.9 L, Monocytes (%) (Auto) 2.0, Eosinophils (%) (Auto) 0.3, Basophils (%) ( Auto) 0.2, Neutrophils # (Auto) 5.3, Lymphocytes # (Auto) 0.4 L, Monocytes # ( Auto) 0.1, Eosinophils # (Auto) 0.0, Basophils # (Auto) 0.0 01/22/17 17:54 Red Blood Count 2.26 L, Mean Corpuscular Volume 111.1 H, Mean Corpuscular Hemoglobin 36.7 H, Mean Corpuscular Hemoglobin Concent 33.1, Red Cell Distribution Width 15.9 H, Calcium Level 7.8 L, Aspartate Amino Transf (AST/SGOT ) 18, Alanine Aminotransferase (ALT/SGPT) 22, Total Creatine Kinase 25 #L, Alkaline Phosphatase 50, Total Bilirubin 0.9, Total Protein 5.6 L, Albumin 2.7 L 01/22/17 21:04 Microbiology Microbiology 01/22/17 Blood Culture, Received Pending 01/22/17 Blood Culture, Received Pending 01/22/17 Urine Culture, Received Pending Assessment This is a 66 y/o M admitted for generalized weakness, found to have b/l obstructing distal ureteral stones in the setting of a UTI. His WBC is normal and he is currently afebrile, but he is also on immunosuppressants for neurosarcoidosis. His Cr is at baseline at 1.2. Plan - agree w/ broad-spectrum antibiotics until cultures come back - will plan to take the patient to the OR tomorrow for b/l ureteral stent placement - please make NPO after midnight AKASH OJEDA MD Jan 22, 2017 23:40
[2017-01-23] VITALS (10 sets, daily range): BP systolic 130–150; BP diastolic 62–87
[2017-01-23 04:59] LABS: MEAN CORPUSCULAR HGB CONC 32.5 g/dl (32.0-36.5); PLATELET COUNT, AUTOMATED 89 10^3/uL (150-450); WHITE BLOOD COUNT 4.2 10^3/uL (4.0-10.0)
[2017-01-23 05:06] LABS: ADD MANUAL DIFFER YES; DIFF SLIDE NUMBER 70; MEAN CORPUSCULAR VOLUME 110.7 fl (80.0-96.0)
[2017-01-23 05:22] LABS: ALBUMIN 2.8 GM/DL (3.2-5.2); ALBUMIN/GLOBULIN RATIO 0.82 (1.00-1.93); ALKALINE PHOSPHATASE 47 U/L (45-117); ALT/SGPT 24 U/L (12-78); ANION GAP 7 MEQ/L (8-16); AST/SGOT 15 U/L (15-37); BILIRUBIN,TOTAL 0.8 MG/DL (0.2-1.0); BLOOD UREA NITROGEN 35 MG/DL (7-18); CARBON DIOXIDE LEVEL 26 MEQ/L (21-32); CHLORIDE LEVEL 113 MEQ/L (98-107); CREATININE FOR GFR 1.03 MG/DL (0.70-1.30); GLOMERULAR FILTRATION RATE > 60.0 (>49); GLUCOSE, FASTING 106 MG/DL (80-110); MAGNESIUM LEVEL 2.2 MG/DL (1.8-2.4); POTASSIUM SERUM 3.7 MEQ/L (3.5-5.1); SODIUM LEVEL 146 MEQ/L (136-145); TOTAL PROTEIN 6.2 GM/DL (6.4-8.2)
[2017-01-23 05:47] LABS: BASOPHILS 1 % (0-4)
[2017-01-23 05:48] LABS: ANISOCYTOSIS 1+; POLYCHROMASIA 1+
[2017-01-23] MEDS: HEPARIN SOD (PORCINE) 5000 UNITS/ML VIAL SQ SCH ×3 (06:00→21:43)
[2017-01-23] MEDS: HumaLOG INSULIN (NovoLOG) PER UNIT SC SCH ×5 (06:00→21:00)
[2017-01-23] MEDS: LEVOTHYROXINE 75MCG TABLET (0.075MG) PO SCH (06:36)
[2017-01-23] MEDS ORDERED: MORPHINE 2 MG/ML 1ML SYRINGE IV PRN (07:15)
--- NOTE | 2017-01-23 08:21 | REP ---
Portable chest, 07:45 p.m., single AP view, the patient semi upright: Comparison 01/22/2017. There is a focal small zone of atelectasis along the right cardiac margin inferiorly in the right lung. The lung myers otherwise clear. Cardiac size is enlarged. There is tubing superimposed over the heart, likely external to the patient. The shirley, mediastinum, bony thorax are unremarkable. Impression: Cardiomegaly. There is a small focal zone of atelectasis inferiorly in the right lung. Half Signed by David Ramos MD 01/23/2017 08:13 A
[2017-01-23] MEDS: SERTRALINE HCL 50 MG TAB PO SCH (08:48)
[2017-01-23] MEDS: FAMOTIDINE 20 MG TAB PO SCH ×2 (08:48→21:42)
[2017-01-23] MEDS: ACETAMINOPHEN 650MG ER TAB (TYLENOL ARTHRITIS) PO SCH ×2 (08:48→21:42)
[2017-01-23] MEDS: MAGNESIUM OXIDE 400 MG TAB (MAG-OX) PO SCH (08:48)
[2017-01-23] MEDS: TIMOLOL MALEATE 0.5% OPHTH SOLN 5 ML OU SCH (08:49)
[2017-01-23] MEDS ORDERED: predniSONE 20 MG TAB PO SCH (09:00)
--- NOTE | 2017-01-23 09:24 | ECGEPIP ---
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
[2017-01-23] MEDS ORDERED: CONRAY-60 60% 50ML VIAL (Q9961) As Ordered ONE ×3 (11:54→13:52)
[2017-01-23] MEDS ORDERED: LIDOCAINE 2% INJ 100 MG/5 ML SDV (FOR ANES.) As Ordered ONE (12:03)
[2017-01-23] MEDS ORDERED: METOCLOPRAMIDE INJ 10MG/2ML VIAL (J2765) As Ordered ONE (12:03)
[2017-01-23] MEDS ORDERED: PROPOFOL 200 MG/20 ML VIAL As Ordered ONE (12:03)
[2017-01-23] MEDS ORDERED: ONDANSETRON 4MG/2ML VIAL (J2405) As Ordered ONE (12:03)
[2017-01-23] MEDS ORDERED: MIDAZOLAM INJ 2 MG/2 ML VIAL (J2250) As Ordered ONE ×2 (12:04→13:44)
[2017-01-23] MEDS ORDERED: fentaNYL 100 MCG/2 ML INJECTION (J3010) As Ordered ONE ×2 (12:04→13:31)
[2017-01-23] MEDS ORDERED: cefTRIAXone SOD 1 GM VIAL (J0696) As Ordered ONE (12:26)
[2017-01-23] MEDS ORDERED: LIDOCAINE 2% 5ML JELLY UROJET As Ordered ONE (12:49)
[2017-01-23] MEDS ORDERED: cefTRIAXone SOD 1 GM in D5W MINI-BAG PLUS 50 ML IV SCH (13:00)
--- NOTE | 2017-01-23 14:38 | REP ---
Retrograde pyelogram: A series of nine intraoperative fluoroscopic images are performed during cystoscopy and bilateral ureteral stent placement. The final films demonstrate the proximal and distal pigtails of both right and left ureteral stents to be in satisfactory locations. Fluoroscopic exposure time is 2 minutes and 32 seconds. Intraoperative fluoroscopic views are performed with last image hold technology. These images require no additional radiation. Signed by David Ramos MD 01/23/2017 02:30 P
[2017-01-23] MEDS ORDERED: HumaLOG INSULIN (NovoLOG) PER UNIT As Ordered ONE (14:42)
[2017-01-23] MEDS ORDERED: PERCOCET 5MG/325MG TAB PO PRN (15:15)
[2017-01-23] MEDS ORDERED: LR 1,000 ML IV SCH (15:15)
[2017-01-23] MEDS ORDERED: HumaLOG INSULIN (NovoLOG) PER UNIT SC ONE (15:15)
--- NOTE | 2017-01-23 20:46 | IPN ---
DATE: 01/23/2017 Mr. Martines is awake, appropriately interactive, somewhat flattened affect, not complaining of any pain, chest pain, no shortness of breath, is not taking diet this morning, is currently nothing by mouth. Temperature 98.6, pulse 79, respiratory rate 18, blood pressure 130/79, 96%. Intake and output notable for a negative fluid balance of -130. Body mass index is 50.5. He is awake, appropriately interactive, allowing his son to speak for him much of the time. Neck is thick. Breathing is symmetrically diminished. I:E ratio is 1:3. He is speaking in sentences when he does speak, no accessory muscle use. Heart is distant sounding, normal S1, S2. He is not particularly tachycardic on exam. Abdomen soft, doughy, distended, nontender. White cell count 4.2, hemoglobin 8.1, and platelets of 89. BUN 35, creatinine 1.03, sodium is 146. CK and troponins have been negative times three. TSH is 2.19. My assessment is as follows: This is a 66-year-old with obstructive uropathy, nephrolithiasis, hydronephrosis. Plan is as follows: 1. Genitourinary (). The patient has bilateral hydronephrosis, planned for cystoscopy today. Underlying hydronephrosis and suspected urinary tract infection (UTI) and sepsis related to hydronephrosis is most likely the cause of his syncopal event. There is no further workup required prior to proceeding to cystoscopy. 2. The patient has diabetes and is on insulin which has been adjusted in this setting. 3. Patient has hypothyroidism. TSH within normal limits. 4. Patient has morbid obesity, which complicates care. 5. Patient has obstructive sleep apnea (HUDSON). He was wearing continuous positive airway pressure (CPAP) when I arrived this morning. 6. Patient has neurosarcoidosis. Follows at [facility] for that. 7. Patient has history of congestive heart failure (CHF). 8. Patient should be monitored in the progressive care unit (PCU) postoperatively. 9. I did discuss the case with his son at bedside, who will bring in the patient's chair from home, which gives him a little bit more comfort and mobility.
[2017-01-23] MEDS ORDERED: LEVEMIR (INSULIN DETEMIR) 1 UNITS/0.01ML SC SCH (21:00)
[2017-01-23] MEDS ORDERED: oxyCODONE 5MG TAB PO ONE (21:30)
[2017-01-23] MEDS: TAMSULOSIN 0.4 MG CAP PO SCH (21:42)
[2017-01-23] MEDS: LACTULOSE 20 GM/30 ML SYRUP UD PO SCH (21:42)
[2017-01-23] MEDS: LEVEMIR (INSULIN DETEMIR) 1 UNITS/0.01ML SC SCH (21:43)
[2017-01-23] MEDS: MIRALAX *UNIT DOSE* 17GM PACKET PO SCH (21:44)
[2017-01-23] MEDS: BRIMONIDINE 0.15% OPHTH SOLN 5 ML OU SCH (21:44)
[2017-01-23] MEDS: SODIUM CHLORIDE NASAL 0.65% SPRAY BTL (OCEAN) SCH (21:44)
--- NOTE | 2017-01-23 22:00 | ECGEPIP ---
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
[2017-01-24 00:04] VITALS: BP 137/70
[2017-01-24 04:00] VITALS: BP 173/88
[2017-01-24] MEDS: LEVOTHYROXINE 75MCG TABLET (0.075MG) PO SCH (05:46)
[2017-01-24] MEDS: HEPARIN SOD (PORCINE) 5000 UNITS/ML VIAL SQ SCH ×3 (05:46→22:00)
[2017-01-24 06:15] LABS: MEAN CORPUSCULAR HEMOGLOBIN 35.8 pg (27.0-33.0); MEAN CORPUSCULAR HGB CONC 32.2 g/dl (32.0-36.5); PLATELET COUNT, AUTOMATED 67 10^3/uL (150-450); RED CELL DISTRIBUTION WIDTH 15.9 % (11.5-14.5); WHITE BLOOD COUNT 6.1 10^3/uL (4.0-10.0)
[2017-01-24 06:16] LABS: ADD MANUAL DIFFER YES; DIFF SLIDE NUMBER 40; MEAN CORPUSCULAR VOLUME 111.2 fl (80.0-96.0)
[2017-01-24 06:38] LABS: ALBUMIN 2.5 GM/DL (3.2-5.2); ALBUMIN/GLOBULIN RATIO 0.74 (1.00-1.93); ALKALINE PHOSPHATASE 46 U/L (45-117); ALT/SGPT 20 U/L (12-78); ANION GAP 7 MEQ/L (8-16); AST/SGOT 14 U/L (15-37); BILIRUBIN,TOTAL 1.2 MG/DL (0.2-1.0); BLOOD UREA NITROGEN 22 MG/DL (7-18); CARBON DIOXIDE LEVEL 24 MEQ/L (21-32); CHLORIDE LEVEL 116 MEQ/L (98-107); CREATININE FOR GFR 0.93 MG/DL (0.70-1.30); GLOMERULAR FILTRATION RATE > 60.0 (>49); GLUCOSE, FASTING 134 MG/DL (80-110); POTASSIUM SERUM 3.4 MEQ/L (3.5-5.1); SODIUM LEVEL 147 MEQ/L (136-145); TOTAL PROTEIN 5.9 GM/DL (6.4-8.2)
[2017-01-24 07:26] LABS: ANISOCYTOSIS 1+; BASOPHILS 1 % (0-4)
[2017-01-24] MEDS: HumaLOG INSULIN (NovoLOG) PER UNIT SC SCH ×4 (07:30→21:00)
[2017-01-24 08:00] VITALS: BP 132/58
--- NOTE | 2017-01-24 08:10 | RO ---
DATE OF PROCEDURE: 01/23/2017 PREPROCEDURE DIAGNOSIS: Obstructing bilateral ureteral stones. POSTPROCEDURE DIAGNOSIS: Bilateral ureteral obstruction, bilateral ureteral stones. PROCEDURE: Cystoscopy, bilateral ureteroscopy, bilateral retrograde pyelogram with intraoperative interpretation of images, bilateral ureteral stent placements. SURGEON: Dr. Farhat Lassiter SALOON KEEPER: None. ANESTHESIA: MAC. OPERATIVE INDICATIONS: This is a 66-year-old male who presented to the hospital yesterday with generalized weakness. Notes he is on antibiotics for urinary tract infection diagnosed a few days ago. On CAT scan, he had bilateral moderate hydroureteronephrosis with bilateral distal ureteral stones. It was recommended he be brought to the operating room today for bilateral ureteral stent placement. DESCRIPTION OF PROCEDURE: The patient was brought to the operating room where MAC anesthesia was administered. Culture specific antibiotics were infused. He was then placed in dorsal lithotomy position and prepped and draped in the usual sterile fashion. A rigid cystoscope was inserted into the urethral meatus and advanced to the bladder. I then tried to advance a guidewire up the left collecting system and it kept curling in the distal ureter. At this point, I performed a ureteroscopy and of note this left ureter was extremely tortuous. I did see the stones. Ultimately, I was able to advance the ureteroscope up into the more proximal ureter after several minutes. A retrograde pyelogram was performed and was notable for a mild to moderate left hydroureteronephrosis. A wire was then advanced all the way up to the left collecting system. The ureteroscope was then removed and the wire was utilized to advance a 7 Romanian x 22-32 cm JJ ureteral stent up into the left collecting system. At this point, I focused on the right side. I tried to advance a wire up the right side. Similar to the left, the wire just curled in the distal ureter. I then went up the right ureter with a ureteroscope and it also was significantly tortuous. I was ultimately able to navigate my way up into the more proximal ureter and into the kidney. The retrograde pyelogram was performed and was notable for moderate severe right hydroureteronephrosis. The wire was then advanced all the way up into the right collecting system and the ureteroscope was removed. The wire was then utilized to advance a 7 Romanian x 22-32 cm JJ ureteral stent up the right collecting system. The wire was then removed and there were adequate curls of the stent in the right renal pelvis and in the bladder. Of note, we did obtain specimen of urine to send for culture as his urine appeared very cloudy. At this point, an 18 Romanian Barraza catheter was then inserted into the bladder and the balloon was filled with 10 mL of sterile water. The catheter was then connected to gravity drainage and this marked the conclusion of the procedure. The patient was then taken out of the dorsal lithotomy position, awakened from anesthesia and transported to the recovery room in stable condition. Estimated blood loss: 0 mL. Complications: None. Specimen: Urine culture. Plan: The patient's stents will remain in place and he will be kept on antibiotics here in the hospital. Once he is improved, he will be discharged home with the stents in place. He will have a followup in the urology clinic with Dr. Gregg to discuss any subsequent urologic treatment. Of note, I suspect that his ureteral obstruction is not actually from the stones, but much more likely from J hooking of the distal ureters potentially related to a high riding prostate. If this is the case, he might need chronic ureteral drainage. CARINE
--- NOTE | 2017-01-24 08:45 | IPNPDOC ---
Assessment/Plan Date Seen The patient was seen on 01/24/17. Patient Summary This is a 66 y/o M admitted for generalized weakness, found to have b/l obstructing distal ureteral stones in the setting of a UTI, now POD1 s/p cysto, b/l ureteroscopy, b/l ureteral stent placement. Plan/VTE VTE Prophylaxis Ordered?: No VTE Exclusion Mechanical Proph: N/A:VTE Prophy Ordered Plan/Urinary Catheter Reason for insertion/continuin: Critical Pt monitoring Plan - continue catheter to gravity drainage - antibiotics per primary team - no additional urologic interventions needed at this time - the urology office will call to schedule follow up w/ Dr. Gregg Subjective Review oF Systems Chief Complaint The patient is a 66-year-old male admitted with a reason for visit of General Weakness. Events since Last Encounter No acute events o/n. Objective Physical Examination General Exam: No Acute Distress Other physical findings catheter in place, draining clear urine Vital Signs/I&O Vital Signs Date Time Temp Pulse Resp B/P (MAP) Pulse Ox O2 Delivery O2 Flow Rate FiO2 01/24/17 08:00 98.4 80 18 132/58 (82) 98 NIPPV (BIPAP/CPAP) 01/23/17 22:13 2.0 97 Laboratory Data Labs 24H Laboratory Tests 2 01/23/17 09:56: Total Creatine Kinase 21L, Creatine Kinase MB 1.0, Creatine Kinase MB Relative Index 4.76H, Troponin I 0.02# 01/23/17 11:31: Bedside Glucose (Misc Panel) 211H 01/23/17 14:39: Bedside Glucose (Misc Panel) 210H 01/23/17 17:32: Bedside Glucose (Misc Panel) 159H 01/23/17 23:52: Bedside Glucose (Misc Panel) 139H 01/24/17 05:46: White Blood Count 6.1, Red Blood Count 2.15L, Hemoglobin 7.7L, Hematocrit 23.9L , Mean Corpuscular Volume 111.2H, Mean Corpuscular Hemoglobin 35.8H, Mean Corpuscular Hemoglobin Concent 32.2, Red Cell Distribution Width 15.9H, Platelet Count 67L, Neutrophils (%) (Auto) , Lymphocytes # (Auto) , Neutrophils 95H, Lymphocytes (Manual) 2L, Monocytes (Manual) 2, Basophils (Manual) 1, Anisocytosis 1+, Macrocytosis 2+, Platelet Estimate DECREASED, Anion Gap 7L, Glomerular Filtration Rate > 60.0, Blood Urea Nitrogen 22H, Creatinine 0.93, Sodium Level 147H, Potassium Level 3.4L, Chloride Level 116H, Carbon Dioxide Level 24, Calcium Level 8.0L, Aspartate Amino Transf (AST/SGOT) 14L, Alanine Aminotransferase (ALT/SGPT) 20, Alkaline Phosphatase 46, Total Bilirubin 1.2H, Total Protein 5.9L, Albumin 2.5L, C-Reactive Protein, Quantitative 8.64H, Albumin/Globulin Ratio 0.74L CBC/BMP Laboratory Tests 01/24/17 05:46 Red Blood Count 2.15 L, Mean Corpuscular Volume 111.2 H, Mean Corpuscular Hemoglobin 35.8 H, Mean Corpuscular Hemoglobin Concent 32.2, Red Cell Distribution Width 15.9 H, Neutrophils (%) (Auto) , Lymphocytes # (Auto) , Calcium Level 8.0 L, Aspartate Amino Transf (AST/SGOT) 14 L, Alanine Aminotransferase (ALT/SGPT) 20, Alkaline Phosphatase 46, Total Bilirubin 1.2 H, Total Protein 5.9 L, Albumin 2.5 L FSBS Laboratory Tests Test 01/23/17 11:31 01/23/17 14:39 01/23/17 17:32 01/23/17 23:52 Range/Units Bedside Glucose (Misc Panel) 211 210 159 139 80-115 MG/DL Microbiology Microbiology 01/22/17 Blood Culture - Preliminary, Resulted No growth after 24 hours . All specim... 01/22/17 Blood Culture - Preliminary, Resulted No growth after 24 hours . All specim... 01/23/17 Stool Occult Blood (LILIAN) - Final, Complete 01/23/17 Urine Culture, Received Pending 01/22/17 Urine Culture - Final, Complete Escherichia Coli AKASH OJEDA MD Jan 24, 2017 08:45
[2017-01-24] MEDS: oxyCODONE 5MG TAB PO SCH ×2 (09:00→22:37)
[2017-01-24] MEDS ORDERED: oxyCODONE 5MG TAB PO PRN (09:30)
[2017-01-24] MEDS ORDERED: POTASSIUM CHLORIDE 10 MEQ SR TABLET PO ONE (09:30)
[2017-01-24] MEDS: MAGNESIUM OXIDE 400 MG TAB (MAG-OX) PO SCH (09:37)
[2017-01-24] MEDS: ACETAMINOPHEN 650MG ER TAB (TYLENOL ARTHRITIS) PO SCH ×2 (09:37→22:17)
[2017-01-24] MEDS: FAMOTIDINE 20 MG TAB PO SCH ×2 (09:37→22:16)
[2017-01-24] MEDS: SERTRALINE HCL 50 MG TAB PO SCH (09:38)
[2017-01-24] MEDS: NYSTATIN 100,000 UNITS/GM TOPICAL PWD 15 GM TOP SCH ×2 (09:38→22:19)
[2017-01-24] MEDS: TIMOLOL MALEATE 0.5% OPHTH SOLN 5 ML OU SCH (09:38)
[2017-01-24 12:00] VITALS: BP 134/91
--- NOTE | 2017-01-24 12:53 | IPN ---
DATE: 01/24/2017 Mr. Martines is feeling well this morning. He has no complaints of chest pain or shortness of breath. He was helped with some oxycodone last night and we have adjusted his oxycodone dosing to home dosing. He is still having blood in the urine. Temperature 98.4, pulse 80, respiratory rate 18, blood pressure 132/58, 98% on BiPAP. Negative fluid balance of -1360. No bowel movements recorded. He is awake, appropriately interactive, pleasantly conversant. Mucous membranes moist. Neck supple. Body mass index (BMI) is 50.5. Breathing is distant sounding. No significant arrhythmia on the monitor. Heart is distant sounding. Normal S1, S2. Radial pulses 2+. Capillary refill is less than 2 seconds. Abdomen is prominent, nontender. White cell count 6.1, hemoglobin 7.7 dropped from 8.1, and platelets of 67 down from 104. Sodium 147, potassium 3.4, BUN 22, creatinine 0.93. My assessment is as follows: This is a 66-year-old with obstructive uropathy, nephrolithiasis and hydronephrosis. Plan is as follows: 1. Genitourinary (). The patient has been seen by Dr. Lassiter. Will discuss discharge plan with him as to how much more blood loss I can anticipate and whether or not he is safe to go home from a urologic standpoint. 2. The patient has acute blood anemia. Will get a unit of blood today. 3. The patient has hypothyroidism. 4. The patient has morbid obesity which complicates care. 5. The patient has obstructive sleep apnea. He has CPAP which he is compliant with. 6. The patient has neurosarcoidosis. 7. The patient has history of congestive heart failure (CHF) which seems to be compensated. 8. I did discuss the case with his son at bedside. He has 20 hours of home care per day. He is mainly bound to bed or his special wheelchair. They do have a lift system at home. We are considering possibly discharging him later today or tomorrow depending on what his urine does.
[2017-01-24 15:18] VITALS: BP 113/63
[2017-01-24] MEDS: cefTRIAXone SOD 1 GM in D5W 50 ML IV SCH (17:48)
[2017-01-24 20:00] VITALS: BP 151/76
[2017-01-24] MEDS: LACTULOSE 20 GM/30 ML SYRUP UD PO SCH (22:15)
[2017-01-24] MEDS: TAMSULOSIN 0.4 MG CAP PO SCH (22:16)
[2017-01-24] MEDS: SODIUM CHLORIDE NASAL 0.65% SPRAY BTL (OCEAN) SCH (22:18)
[2017-01-24] MEDS: BRIMONIDINE 0.15% OPHTH SOLN 5 ML OU SCH (22:18)
[2017-01-24] MEDS: LEVEMIR (INSULIN DETEMIR) 1 UNITS/0.01ML SC SCH (22:18)
[2017-01-24] MEDS: MIRALAX *UNIT DOSE* 17GM PACKET PO SCH (22:40)
[2017-01-25] VITALS: BP 138/77
[2017-01-25 04:00] VITALS: BP 134/69
[2017-01-25 05:55] LABS: MEAN CORPUSCULAR HEMOGLOBIN 35.1 pg (27.0-33.0); MEAN CORPUSCULAR HGB CONC 32.4 g/dl (32.0-36.5); MEAN CORPUSCULAR VOLUME 108.3 fl (80.0-96.0); PLATELET COUNT, AUTOMATED 63 10^3/uL (150-450); RED CELL DISTRIBUTION WIDTH 17.1 % (11.5-14.5); WHITE BLOOD COUNT 5.4 10^3/uL (4.0-10.0)
[2017-01-25] MEDS: HEPARIN SOD (PORCINE) 5000 UNITS/ML VIAL SQ SCH ×2 (06:00→13:32)
[2017-01-25 06:03] LABS: ADD MANUAL DIFFER YES; DIFF SLIDE NUMBER 32
[2017-01-25] MEDS: LEVOTHYROXINE 75MCG TABLET (0.075MG) PO SCH (06:24)
[2017-01-25 06:29] LABS: ALBUMIN 2.5 GM/DL (3.2-5.2); ALBUMIN/GLOBULIN RATIO 0.74 (1.00-1.93); ALKALINE PHOSPHATASE 47 U/L (45-117); ALT/SGPT 25 U/L (12-78); ANION GAP 7 MEQ/L (8-16); AST/SGOT 18 U/L (15-37); BILIRUBIN,TOTAL 0.8 MG/DL (0.2-1.0); BLOOD UREA NITROGEN 16 MG/DL (7-18); CALCIUM LEVEL 8.1 MG/DL (8.8-10.2); CARBON DIOXIDE LEVEL 23 MEQ/L (21-32); CHLORIDE LEVEL 116 MEQ/L (98-107); CREATININE FOR GFR 0.87 MG/DL (0.70-1.30); GLOMERULAR FILTRATION RATE > 60.0 (>49); GLUCOSE, FASTING 126 MG/DL (80-110); POTASSIUM SERUM 3.4 MEQ/L (3.5-5.1); SODIUM LEVEL 146 MEQ/L (136-145); TOTAL PROTEIN 5.9 GM/DL (6.4-8.2)
[2017-01-25 06:56] LABS: BASOPHILS 2 % (0-4); EOSINOPHILS 1 % (0-5); NUCLEATED RED BLOOD CELL 1 % (0-0)
[2017-01-25 06:57] LABS: ANISOCYTOSIS 1+; HYPERSEGMENTED POLYS 2+
[2017-01-25 08:00] VITALS: BP 131/90
[2017-01-25] MEDS: FAMOTIDINE 20 MG TAB PO SCH ×2 (08:30→20:44)
[2017-01-25] MEDS: MAGNESIUM OXIDE 400 MG TAB (MAG-OX) PO SCH (08:30)
[2017-01-25] MEDS: SERTRALINE HCL 50 MG TAB PO SCH (08:30)
[2017-01-25] MEDS: ACETAMINOPHEN 650MG ER TAB (TYLENOL ARTHRITIS) PO SCH (08:30)
[2017-01-25] MEDS: HumaLOG INSULIN (NovoLOG) PER UNIT SC SCH ×4 (08:32→20:49)
[2017-01-25] MEDS: oxyCODONE 5MG TAB PO SCH ×2 (08:32→20:44)
[2017-01-25] MEDS: NYSTATIN 100,000 UNITS/GM TOPICAL PWD 15 GM TOP SCH ×2 (08:32→20:50)
[2017-01-25] MEDS: TIMOLOL MALEATE 0.5% OPHTH SOLN 5 ML OU SCH (08:33)
[2017-01-25] MEDS ORDERED: POTASSIUM CHLORIDE 10 MEQ SR TABLET PO ONE (10:00)
[2017-01-25 11:40] VITALS: BP 146/65
[2017-01-25] MEDS: cefTRIAXone SOD 1 GM in D5W 50 ML IV SCH (12:50)
--- NOTE | 2017-01-25 15:58 | IPN ---
DATE: 01/25/2017 SUBJECTIVE: Mr. Martines is more interactive when I seem this morning. He is not complaining of pain, chest pain, or shortness of breath. OBJECTIVE: VITAL SIGNS: Temperature is 97.6, pulse 74, respiratory rate 20, blood pressure 131/90, 98% on his bilevel positive airway pressure (BiPAP). INTAKE AND OUTPUT: Notable for negative fluid status of minus 3180. No bowel movements thus far noted. GENERAL: He is awake, somewhat flattened affect. Slow to respond. NECK: Thick. LUNGS: Breathing is symmetrical, diminished. I:E ration 1:3. HEART: Distant sounding normal S1, S2. ABDOMEN: Soft, doughy, nontender, protuberant. LABORATORY DATA: White cell count 5.4, hemoglobin eight, platelets of 63, down from 104. Neutrophils 90. Sodium is 146, BUN 16, creatinine 0.87. ASSESSMENT: This is a 66-year-old with obstructive uropathy, nephrolithiasis, and hydronephrosis. PLAN: 1. Genitourinary (): The patient has been seen by Dr. Lassiter in consultation. He does not believe that the patient will have much more blood loss. I do have a plan to transfuse the patient another unit of blood today for acute blood loss, in preparation for creating a safe discharge plan. 2. The patient as acute blood loss anemia as above. 3. The patient has hypothyroidism. 4. The patient has morbid obesity which complicates care. 5. The patient has obstructive sleep apnea, is compliant with his continuous positive airway pressure (CPAP). 6. The patient has neurosarcoid. 7. The patient has a history of congestive heart failure which appears to be compensated. I did discuss this case with the patient's [id number] at bedside at some length this morning. I plan to return again this afternoon as they have asked to discuss the case some more, most likely with an eye toward getting him home hopefully tomorrow.
[2017-01-25 16:00] VITALS: BP 143/61
[2017-01-25] MEDS ORDERED: ACETAMINOPHEN TAB 650MG DOSE (2X325MG) PO PRN (16:30)
[2017-01-25] MEDS ORDERED: oxyCODONE 5MG TAB PO PRN (16:45)
[2017-01-25] MEDS ORDERED: FUROSEMIDE 40 MG/4 ML VIAL (J1940) IV ONE (17:00)
[2017-01-25 17:01] LABS: ABG BASE EXCESS -0.1 (-2.0-2.0); ABG HCO3 23.1 MEQ/L (22.0-26.0); ABG PARTIAL PRESSURE CO2 32.2 mmHg (35.0-45.0); ABG PARTIAL PRESSURE O2 96.7 mmHg (75.0-100.0); ABG STANDARD HCO3 24.4 MEQ/L (22.0-26.0); ABG TOTAL CO2 24.1 MEQ/L (23.0-31.0); ABG pH (ARTERIAL) 7.474 UNITS (7.350-7.450)
--- NOTE | 2017-01-25 18:01 | REP ---
HISTORY: Dyspnea COMPARISON: 01/22/2017, also portable. The technique utilized in obtaining the radiograph has magnified the cardiac silhouette and accentuated the interstitial markings. The examination is limited not only by portable technique, but secondary to significant motion artifact. A subtle basilar abnormality including a tiny amount of free air could be obscured by the technique and the artifact. There does appear to be gross cardiomegaly, status quo. I see no gross significant change compared to the 01/22/2017 exam. IMPRESSION: The exam is markedly limited as described above, but does not appear grossly changed from 01/22/2017. Consider repeat. Signed by Oleksandr Peck DO 01/28/2017 04:40 P
[2017-01-25 18:50] VITALS: BP 140/58
[2017-01-25] MEDS: LACTOBACILLUS ACIDOPHILUS CAP (BACID) PO SCH (20:44)
[2017-01-25] MEDS: TAMSULOSIN 0.4 MG CAP PO SCH (20:44)
[2017-01-25] MEDS: FENTANYL REMOVAL DOCUMENTATION MISC XX SCH (20:45)
[2017-01-25] MEDS: fentaNYL 75 MCG/HR PATCH TD SCH (20:45)
[2017-01-25] MEDS: LEVEMIR (INSULIN DETEMIR) 1 UNITS/0.01ML SC SCH (20:48)
[2017-01-25] MEDS: MIRALAX *UNIT DOSE* 17GM PACKET PO SCH (20:49)
[2017-01-25] MEDS: LACTULOSE 20 GM/30 ML SYRUP UD PO SCH (20:49)
[2017-01-25] MEDS: BRIMONIDINE 0.15% OPHTH SOLN 5 ML OU SCH (20:50)
[2017-01-25] MEDS: SODIUM CHLORIDE NASAL 0.65% SPRAY BTL (OCEAN) SCH (20:51)
[2017-01-26] VITALS: BP 165/85
[2017-01-26 04:00] VITALS: BP 135/63
[2017-01-26] MEDS: LEVOTHYROXINE 75MCG TABLET (0.075MG) PO SCH (06:21)
[2017-01-26 06:43] LABS: BASO % 0.2 % (0.0-1.0); EOS # 0.1 10^3/uL (0.0-0.50); EOS % 1.6 % (0.0-3.0); IMMATURE GRANULOCYTE % 0.7 % (0-0); LYMPH # 0.5 10^3/uL (1.5-4.5); LYMPH % 11.2 % (24.0-44.0); MEAN CORPUSCULAR HEMOGLOBIN 33.9 pg (27.0-33.0); MEAN CORPUSCULAR HGB CONC 32.5 g/dl (32.0-36.5); MEAN CORPUSCULAR VOLUME 104.1 fl (80.0-96.0); MONO # 0.2 10^3/uL (0.0-0.8); MONO % 4.1 % (0.0-5.0); NEUTROPHILS # 3.6 10^3/uL (1.8-7.7); NEUTROPHILS % 82.2 % (36.0-66.0); PLATELET COUNT, AUTOMATED 75 10^3/uL (150-450); RED CELL DISTRIBUTION WIDTH 19.1 % (11.5-14.5); WHITE BLOOD COUNT 4.4 10^3/uL (4.0-10.0)
[2017-01-26 07:05] LABS: ALBUMIN 2.5 GM/DL (3.2-5.2); ALBUMIN/GLOBULIN RATIO 0.96 (1.00-1.93); ALKALINE PHOSPHATASE 45 U/L (45-117); ALT/SGPT 27 U/L (12-78); ANION GAP 9 MEQ/L (8-16); AST/SGOT 18 U/L (15-37); BILIRUBIN,TOTAL 0.7 MG/DL (0.2-1.0); BLOOD UREA NITROGEN 12 MG/DL (7-18); CALCIUM LEVEL 7.7 MG/DL (8.8-10.2); CARBON DIOXIDE LEVEL 23 MEQ/L (21-32); CHLORIDE LEVEL 114 MEQ/L (98-107); CREATININE FOR GFR 0.81 MG/DL (0.70-1.30); GLOMERULAR FILTRATION RATE > 60.0 (>49); GLUCOSE, FASTING 125 MG/DL (80-110); POTASSIUM SERUM 3.5 MEQ/L (3.5-5.1); SODIUM LEVEL 146 MEQ/L (136-145); TOTAL PROTEIN 5.1 GM/DL (6.4-8.2)
[2017-01-26 07:48] VITALS: BP 124/65
[2017-01-26] MEDS ORDERED: SPIRONOLACTONE 25 MG TAB PO SCH (09:00)
[2017-01-26] MEDS ORDERED: TORSEMIDE (DEMADEX) 50 MG PER 1/2 TAB PO SCH (09:00)
[2017-01-26] MEDS: HumaLOG INSULIN (NovoLOG) PER UNIT SC SCH ×2 (10:07→12:04)
[2017-01-26] MEDS: MAGNESIUM OXIDE 400 MG TAB (MAG-OX) PO SCH (10:08)
[2017-01-26] MEDS: SERTRALINE HCL 50 MG TAB PO SCH (10:08)
[2017-01-26] MEDS: LACTOBACILLUS ACIDOPHILUS CAP (BACID) PO SCH (10:09)
[2017-01-26] MEDS: NYSTATIN 100,000 UNITS/GM TOPICAL PWD 15 GM TOP SCH (10:10)
[2017-01-26] MEDS: TIMOLOL MALEATE 0.5% OPHTH SOLN 5 ML OU SCH (10:10)
[2017-01-26] MEDS: FAMOTIDINE 20 MG TAB PO SCH (10:10)
[2017-01-26] MEDS: oxyCODONE 5MG TAB PO SCH (10:10)
[2017-01-26] MEDS ORDERED: CEFD1CAP8 PO (11:56)
[2017-01-26 12:01] VITALS: BP 140/75
[2017-01-26] MEDS: cefTRIAXone SOD 1 GM in D5W 50 ML IV SCH (12:04)
--- NOTE | 2017-01-27 10:04 | DSES ---
DATE OF ADMISSION: 01/22/2017 DATE OF DISCHARGE: 01/26/2017 SPECIALISTS INVOLVED IN CARE: Dr. Farhat Lassiter. COMPLICATIONS: No complications during his stay. PROCEDURES PERFORMED DURING STAY: Include: Cystoscopy and stent placement. DISCHARGE DIAGNOSES: 1. E. coli urinary tract infection, sepsis, present on admission. 2. Obstructive uropathy with obstructing distal ureteral stones. 3. Obstructive sleep apnea (HUDSON) on CPAP. 4. Right bundle branch block. 5. Chronic back pain. 6. Spinal stenosis. 7. Neurosarcoidosis. 8. History of transient ischemic attack (TIA). 9. Insulin dependent diabetes. 10. Amyloidosis. 11. Urinary retention. 12. Chronic lower extremity ulcers. 13. Benign prostatic hypertrophy (BPH). 14. Glaucoma. 15. Hypomagnesemia. 16. Chronic constipation. 17. Depression. SUMMARY OF HOSPITALIZATION: This is a 66-year-old who was found unresponsive at home. He was brought to the hospital for evaluation, found to be febrile with a urinary tract infection, was noted to have bilateral hydronephrosis on renal ultrasound with bilateral ureteral calculi. He was seen in consultation by Dr. Lassiter who has taken the patient and two cystoscopy stents were placed. Urinary catheter was placed which is going to be present at the time of discharge. He did require 2 units of blood while hospitalized as he was having some hematuria, which was improving at the time of discharge. His mental status was waxing and waning. His fluid status was adjusted and eventually returned back to a semblance of his baseline. Plan is for discharge today. He is making jokes. No complaints of chest pain. No shortness of breath. Temperature 97, pulse 90, respiratory rate 18, blood pressure 140/75, 98%. He is morbidly obese with a body mass index (BMI) of 50.5. Breathing is symmetrically diminished. Heart is distant sounding. Abdomen is soft, doughy, nontender. Barraza catheter is draining pink urine. White cell count 4.4, hemoglobin 8.3, and platelets of 75. BUN is 12, creatinine 0.8, sodium is 146. DISCHARGE INSTRUCTIONS: Include the followin. Followup with Dr. Sierra. Call her office for followup instructions on Saturday. 2. Dr. Gregg for followup instructions on Saturday as well. 3. Activity and diet as tolerated. DISCHARGE MEDICATIONS: - He was given a prescription for cefdinir 300 mg by mouth twice daily, #20. - Tylenol by mouth twice daily - acidophilus one capsule by mouth daily - Amitiza 24 mcg by mouth daily - Androgel transdermally - Alphagan P one drop each eye daily at bedtime - cranberry extract - fentanyl transdermal 75 mcg every third day - folic acid 1 mg five times a week - Neurontin 1600 mg by mouth twice daily - glimepiride 4 mg by mouth twice daily - Remicade every month - Levemir 35 units daily at bedtime - lactulose 30 mL daily at bedtime - Synthroid 75 mcg by mouth daily - magnesium oxide 800 mg by mouth daily - methotrexate weekly - nystatin topically as needed for rash - Osteo Bi-Flex as deemed necessary - oxycodone 10 mg by mouth twice daily - Pennsaid 2 grams transdermally four times daily - MiraLAX 17 grams by mouth daily at bedtime - prednisone 20 mg by mouth daily - probiotic one tablet by mouth daily - Zantac 150 mg by mouth daily - sertraline 50 mg by mouth daily - Januvia 50 mg by mouth daily - ocean nasal spray - spironolactone 25 mg by mouth daily - Flomax 0.4 mg by mouth daily at bedtime - timolol one drop each eye daily - Zanaflex 8 mg by mouth daily at bedtime - torsemide 100 mg by mouth twice daily Discontinue Macrobid. Discontinue Bactrim.
[2017-02-06 12:35] LABS: IMMATURE PLATELET FRACTION % 1.2 % (0.0-10.9)
== END 2017-01-26 16:36 | disposition home health service (06) | DRG 872 ==
LOC: EDBD 10:15 → M ED 10:15 → M ED INP 13:44 → M PCU 17:23
PROVIDERS: ADMIT Internal Medicine; ATTEND Internal Medicine
PROC: 0T768DZ Dilation of Right Ureter with Intraluminal Device, Via Natural or Artificial Opening Endoscopic (ICD-10-PCS; 2017-01-23)
PROC: 0T778DZ Dilation of Left Ureter with Intraluminal Device, Via Natural or Artificial Opening Endoscopic (ICD-10-PCS; 2017-01-23)
PROC: 30233N1 Transfusion of Nonautologous Red Blood Cells into Peripheral Vein, Percutaneous Approach (ICD-10-PCS; principal; 2017-01-24)
DX: A41.51 Sepsis due to Escherichia coli [E. coli] (principal); N39.0 Urinary tract infection, site not specified; N13.2 Hydronephrosis with renal and ureteral calculous obstruction; Z68.43 Body mass index [BMI] 50.0-59.9, adult; D62 Acute posthemorrhagic anemia; R65.20 Severe sepsis without septic shock; E66.01 Morbid (severe) obesity due to excess calories; G47.33 Obstructive sleep apnea (adult) (pediatric); F32.9 Major depressive disorder, single episode, unspecified; K59.00 Constipation, unspecified; E83.42 Hypomagnesemia; N40.0 Benign prostatic hyperplasia without lower urinary tract symptoms; E11.40 Type 2 diabetes mellitus with diabetic neuropathy, unspecified; I45.10 Unspecified right bundle-branch block; D86.89 Sarcoidosis of other sites; Z86.73 Personal history of transient ischemic attack (TIA), and cerebral infarction without residual deficits; H40.9 Unspecified glaucoma; Z79.899 Other long term (current) drug therapy; R31.9 Hematuria, unspecified; K21.9 Gastro-esophageal reflux disease without esophagitis; R33.9 Retention of urine, unspecified; I50.9 Heart failure, unspecified; Z79.4 Long term (current) use of insulin; E03.9 Hypothyroidism, unspecified

== ENCOUNTER → 2017-06-06 | Outpatient (REF) | payer MEDICARE, OTHER ==
[2017-06-06 20:40] LABS: FERRITIN 401 NG/ML (26-388); IRON (FE) 34 UG/DL (65-175); PERCENT SATURATION 12.9 % (19.7-50.0); TOTAL IRON BINDING CAPACITY 263 UG/DL (250-450)
== END ==
LOC: M LAB REF 18:45
DX: D86.9 Sarcoidosis, unspecified (principal)
CPT/HCPCS: 83550

== ENCOUNTER 2017-06-07 14:40 | Inpatient (IN) | payer MEDICARE, OTHER ==
[2017-06-07] MEDS: CEFEPIME HCL 1 GM in D5W MINI-BAG PLUS 50 ML IV (15:20)
[2017-06-07 15:32] LABS: VENOUS BASE EXCESS 2.2 (-2.0-2.0); VENOUS HCO3 27.9 MEQ/L (23.0-27.0); VENOUS O2 SATURATION 75.6 % (60.0-80.0); VENOUS PARTIAL PRESSURE CO2 48.6 mmHg (38.0-50.0); VENOUS PARTIAL PRESSURE O2 43.6 mmHg (30.0-50.0); VENOUS PH 7.377 UNITS (7.330-7.430); VENOUS TOTAL CO2 29.4 MEQ/L (24.0-28.0)
[2017-06-07 15:33] LABS: BASO % 0.2 % (0.0-1.0); EOS # 0.1 10^3/uL (0.0-0.50); EOS % 0.4 % (0.0-3.0); HEMATOCRIT 31.5 % (42.0-52.0); HEMOGLOBIN 10.2 g/dl (14.0-18.0); IMMATURE GRANULOCYTE % 1.3 % (0-3.0); LYMPH % 1.8 % (24.0-44.0); MEAN CORPUSCULAR HEMOGLOBIN 33.9 pg (27.0-33.0); MEAN CORPUSCULAR HGB CONC 32.4 g/dl (32.0-36.5); MEAN CORPUSCULAR VOLUME 104.7 fl (80.0-96.0); MONO # 0.4 10^3/uL (0.0-0.8); NEUTROPHILS # 11.7 10^3/uL (1.8-7.7); NEUTROPHILS % 93.3 % (36.0-66.0); PLATELET COUNT, AUTOMATED 103 10^3/uL (150-450); RED BLOOD COUNT 3.01 10^6/uL (4.30-6.10); RED CELL DISTRIBUTION WIDTH 17.4 % (11.5-14.5); WHITE BLOOD COUNT 12.5 10^3/uL (4.0-10.0)
[2017-06-07 15:47] LABS: PROTHROMBIN TIME 15.4 SECONDS (12.4-14.5)
[2017-06-07 15:48] LABS: PARTIAL THROMBOPLASTIN TIME 38.3 SECONDS (26.8-37.9)
[2017-06-07 15:57] LABS: LYMPH # 0.2 10^3/uL (1.5-4.5); POSITIVE DIFF POS FLAG
[2017-06-07 15:59] LABS: LACTIC ACID SEPSIS PROTOCOL 1.3 MMOL/L (0.4-2.0)
[2017-06-07 16:02] LABS: ALBUMIN 3.1 GM/DL (3.2-5.2); ALBUMIN/GLOBULIN RATIO 0.84 (1.00-1.93); ALKALINE PHOSPHATASE 76 U/L (45-117); ALT/SGPT 23 U/L (12-78); AMYLASE 27 U/L (25-115); ANION GAP 9 MEQ/L (8-16); AST/SGOT 13 U/L (7-37); BILIRUBIN,DIRECT 0.3 MG/DL (0.0-0.2); BILIRUBIN,TOTAL 1.1 MG/DL (0.2-1.0); BLOOD UREA NITROGEN 35 MG/DL (7-18); CALCIUM LEVEL 8.2 MG/DL (8.8-10.2); CARBON DIOXIDE LEVEL 28 MEQ/L (21-32); CHLORIDE LEVEL 101 MEQ/L (98-107); CPK CREATINE PHOSPHOKINASE 10 U/L (39-308); CREATININE FOR GFR 1.36 MG/DL (0.70-1.30); GLOMERULAR FILTRATION RATE 55.5 (>49); GLUCOSE, FASTING 147 MG/DL (70-100); POTASSIUM SERUM 3.7 MEQ/L (3.5-5.1); SODIUM LEVEL 138 MEQ/L (136-145); TOTAL PROTEIN 6.8 GM/DL (6.4-8.2); TROPONIN I < 0.02 NG/ML (< 0.10)
[2017-06-07] MEDS: DILUENT IV (16:16)
[2017-06-07] MEDS: NS IV (16:16)
[2017-06-07 16:32] LABS: APPEARANCE, URINE MANUAL CLOUDY (CLEAR); COLOR, URINE MANUAL LT YELLOW (YELLOW); MICROSCOPIC INDICATED? MAN YES (NO)
[2017-06-07 16:33] LABS: BILIRUBIN, URINE MANUAL NEGATIVE (NEGATIVE); BLOOD URINE MANUAL POSITIVE (NEGATIVE); GLUCOSE, URINE (UA) MANUAL NEGATIVE (NEGATIVE); KETONE, URINE MANUAL NEGATIVE (NEGATIVE); LEUKOCYTE ESTERASE, URINE MAN POSITIVE (NEGATIVE); NITRITE, URINE MANUAL NEGATIVE (NEGATIVE); PROTEIN, URINE MANUAL 1+ mg/dL (NEGATIVE); SPECIFIC GRAVITY,URINE MANUAL 1.015 (1.002-1.035); UROBILINOGEN, URINE MANUAL NORMAL (NORMAL)
[2017-06-07 16:35] LABS: BACTERIA, URINE SMALL AMOUNT; MICROSCOPIC EXAM UNSPUN; MUCUS, URINE SMALL AMOUNT (NEGATIVE)
[2017-06-07 16:36] LABS: SQUAMOUS EPITHELIAL CELL URINE NONE SEEN /hpf (SMALL AMT); TRANSITIONAL EPI CELLS, URINE SMALL AMOUNT /hpf
[2017-06-07 16:37] LABS: HYALINE CAST, URINE 0-1 /lpf (0-1)
[2017-06-07] MEDS ORDERED: DEXTROSE 50% 50 ML SYRINGE IV (20:00)
[2017-06-07] MEDS ORDERED: ONDANSETRON 4MG/2ML VIAL (J2405) IV (20:00)
[2017-06-07] MEDS ORDERED: NYSTATIN 100,000 UNITS/GM TOPICAL PWD 15 GM TOP (20:00)
[2017-06-07] MEDS ORDERED: GLUCOSE 4 GM CHEW TABLET PO (20:00)
[2017-06-07] MEDS ORDERED: GLUCAGON FOR INJ 1 MG VIAL (J1610) SC (20:00)
[2017-06-07] MEDS: SENOKOT S TAB PO (21:00)
[2017-06-07] MEDS: PREPARATION H OINTMENT (HEMORRHOID) PR (21:00)
[2017-06-07] MEDS: HumaLOG INSULIN (NovoLOG) PER UNIT SC (21:00)
[2017-06-07 21:41] LABS: CPK CREATINE PHOSPHOKINASE 8 U/L (39-308); FREE THYROXINE INDEX 1.9 % (1.4-3.8); T UPTAKE 31 % (33-40); THYROXINE (T4) 6.1 UG/DL (4.5-12.0); TROPONIN I < 0.02 NG/ML (< 0.10)
[2017-06-07 22:49] LABS: BEDSIDE GLUCOSE 195 MG/DL (80-115)
[2017-06-07] MEDS: HEPARIN SOD (PORCINE) 5000 UNITS/ML VIAL SC (22:56)
[2017-06-07] MEDS: LACTULOSE 20 GM/30 ML SYRUP UD PO (22:56)
[2017-06-07] MEDS: MIRALAX *UNIT DOSE* 17GM PACKET PO (22:57)
[2017-06-07] MEDS: FAMOTIDINE 20 MG TAB PO (22:57)
[2017-06-07] MEDS: TAMSULOSIN 0.4 MG CAP PO (22:57)
[2017-06-07] MEDS: GABAPENTIN 400 MG CAP PO (22:58)
[2017-06-07] MEDS: oxyCODONE 5MG TAB PO (22:58)
[2017-06-07] MEDS: LEVEMIR (INSULIN DETEMIR) 1 UNITS/0.01ML SC (22:59)
[2017-06-07] MEDS: AZITHROMYCIN INJ 500 MG, VIAL MATE ADAPTER 1 EACH in D5W 250 ML IV (23:00)
[2017-06-07] MEDS ORDERED: SLF 3 ML SYR IV (23:15)
[2017-06-07] MEDS: ACETAMINOPHEN 650MG ER TAB (TYLENOL ARTHRITIS) PO (23:18)
[2017-06-07] MEDS: tiZANidine 4 MG TAB PO (23:19)
[2017-06-07] MEDS: BRIMONIDINE 0.15% OPHTH SOLN 5 ML OU (23:19)
[2017-06-08] MEDS: CEFEPIME HCL 1 GM in D5W MINI-BAG PLUS 50 ML IV ×2 (04:02→15:08)
[2017-06-08 04:14] LABS: HEMATOCRIT 24.8 % (42.0-52.0); MEAN CORPUSCULAR HEMOGLOBIN 33.5 pg (27.0-33.0); MEAN CORPUSCULAR HGB CONC 32.3 g/dl (32.0-36.5); MEAN CORPUSCULAR VOLUME 103.8 fl (80.0-96.0); PLATELET COUNT, AUTOMATED 95 10^3/uL (150-450); RED BLOOD COUNT 2.39 10^6/uL (4.30-6.10); RED CELL DISTRIBUTION WIDTH 17.4 % (11.5-14.5); WHITE BLOOD COUNT 6.1 10^3/uL (4.0-10.0)
[2017-06-08 04:28] LABS: ANION GAP 8 MEQ/L (8-16); BLOOD UREA NITROGEN 37 MG/DL (7-18); C REACTIVE PROTEIN QUANTITATIV 6.64 MG/DL (0.00-0.30); CALCIUM LEVEL 7.6 MG/DL (8.8-10.2); CARBON DIOXIDE LEVEL 26 MEQ/L (21-32); CHLORIDE LEVEL 105 MEQ/L (98-107); CREATININE FOR GFR 1.05 MG/DL (0.70-1.30); GLOMERULAR FILTRATION RATE > 60.0 (>49); GLUCOSE, FASTING 144 MG/DL (70-100); MAGNESIUM LEVEL 2.3 MG/DL (1.8-2.4); POTASSIUM SERUM 3.6 MEQ/L (3.5-5.1); SODIUM LEVEL 139 MEQ/L (136-145)
[2017-06-08] MEDS: HEPARIN SOD (PORCINE) 5000 UNITS/ML VIAL SC (06:01)
[2017-06-08] MEDS: LEVOTHYROXINE 75MCG TABLET (0.075MG) PO (06:01)
[2017-06-08] MEDS: SLF 3 ML SYR IV ×3 (06:02→20:59)
[2017-06-08] MEDS: methylPREDNISolone INJ 125 MG/2 ML VIAL (J2930) IV ×3 (06:58→17:07)
[2017-06-08] MEDS: GABAPENTIN 400 MG CAP PO ×2 (08:16→20:58)
[2017-06-08] MEDS: ACETAMINOPHEN 650MG ER TAB (TYLENOL ARTHRITIS) PO ×2 (08:17→20:58)
[2017-06-08] MEDS: LEVEMIR (INSULIN DETEMIR) 1 UNITS/0.01ML SC ×2 (08:17→20:57)
[2017-06-08] MEDS: HumaLOG INSULIN (NovoLOG) PER UNIT SC ×4 (08:17→20:57)
[2017-06-08] MEDS: MAGNESIUM OXIDE 400 MG TAB (MAG-OX) PO (08:18)
[2017-06-08] MEDS: FAMOTIDINE 20 MG TAB PO ×2 (08:18→20:57)
[2017-06-08] MEDS: BACTRIM 160MG/800MG DS TAB PO (08:18)
[2017-06-08] MEDS: FOLIC ACID 1 MG TAB PO (08:18)
[2017-06-08] MEDS: SERTRALINE HCL 50 MG TAB PO (08:18)
[2017-06-08] MEDS: MULTIVITAMINS/MINERALS THERAP 1 TAB PO (08:18)
[2017-06-08] MEDS: SENOKOT S TAB PO ×2 (08:18→20:58)
[2017-06-08] MEDS: PREPARATION H OINTMENT (HEMORRHOID) PR ×2 (08:19→20:59)
[2017-06-08] MEDS: TIMOLOL MALEATE 0.5% OPHTH SOLN 5 ML OU (08:19)
[2017-06-08] MEDS ORDERED: predniSONE 20 MG TAB PO (09:00)
[2017-06-08 09:45] LABS: EOS % 0.1 % (0.0-3.0); HEMATOCRIT 27.2 % (42.0-52.0); HEMOGLOBIN 8.8 g/dl (14.0-18.0); IMMATURE GRANULOCYTE % 0.9 % (0-3.0); LYMPH % 1.6 % (24.0-44.0); MEAN CORPUSCULAR HEMOGLOBIN 33.7 pg (27.0-33.0); MEAN CORPUSCULAR HGB CONC 32.4 g/dl (32.0-36.5); MEAN CORPUSCULAR VOLUME 104.2 fl (80.0-96.0); MONO # 0.1 10^3/uL (0.0-0.8); MONO % 0.9 % (0.0-5.0); NEUTROPHILS # 6.7 10^3/uL (1.8-7.7); NEUTROPHILS % 96.5 % (36.0-66.0); PLATELET COUNT, AUTOMATED 104 10^3/uL (150-450); RED BLOOD COUNT 2.61 10^6/uL (4.30-6.10); RED CELL DISTRIBUTION WIDTH 17.5 % (11.5-14.5)
[2017-06-08 10:13] LABS: ADD MANUAL DIFFER NO; DIFF SLIDE NUMBER 100; LYMPH # 0.1 10^3/uL (1.5-4.5); POSITIVE DIFF POS FLAG
[2017-06-08 12:03] LABS: BEDSIDE GLUCOSE 191 MG/DL (80-115)
[2017-06-08 16:44] LABS: BEDSIDE GLUCOSE 368 MG/DL (80-115)
[2017-06-08 20:38] LABS: BEDSIDE GLUCOSE 351 MG/DL (80-115)
[2017-06-08] MEDS: LACTULOSE 20 GM/30 ML SYRUP UD PO (20:55)
[2017-06-08] MEDS: AZITHROMYCIN INJ 500 MG, VIAL MATE ADAPTER 1 EACH in D5W 250 ML IV (20:56)
[2017-06-08] MEDS: TAMSULOSIN 0.4 MG CAP PO (20:58)
[2017-06-08] MEDS: tiZANidine 4 MG TAB PO (20:58)
[2017-06-08] MEDS: BRIMONIDINE 0.15% OPHTH SOLN 5 ML OU (20:59)
[2017-06-08] MEDS: MIRALAX *UNIT DOSE* 17GM PACKET PO (21:06)
[2017-06-09] MEDS: methylPREDNISolone INJ 125 MG/2 ML VIAL (J2930) IV ×4 (00:52→17:04)
[2017-06-09] MEDS: CEFEPIME HCL 1 GM in D5W MINI-BAG PLUS 50 ML IV ×2 (03:48→15:24)
[2017-06-09 04:09] LABS: HEMATOCRIT 27.5 % (42.0-52.0); HEMOGLOBIN 8.9 g/dl (14.0-18.0); MEAN CORPUSCULAR HGB CONC 32.4 g/dl (32.0-36.5); MEAN CORPUSCULAR VOLUME 101.9 fl (80.0-96.0); PLATELET COUNT, AUTOMATED 105 10^3/uL (150-450); RED CELL DISTRIBUTION WIDTH 16.8 % (11.5-14.5); RETIC HEMOGLOBIN EQUIVALENT 31.1 pg (24-36); RETICULOCYTE # 60.2 10^9/L (17-77); RETICULOCYTE % 2.2 % (0.5-1.5); WHITE BLOOD COUNT 4.2 10^3/uL (4.0-10.0)
[2017-06-09 04:29] LABS: ANION GAP 10 MEQ/L (8-16); BLOOD UREA NITROGEN 30 MG/DL (7-18); C REACTIVE PROTEIN QUANTITATIV 3.31 MG/DL (0.00-0.30); CALCIUM LEVEL 7.6 MG/DL (8.8-10.2); CARBON DIOXIDE LEVEL 24 MEQ/L (21-32); CHLORIDE LEVEL 108 MEQ/L (98-107); CREATININE FOR GFR 0.99 MG/DL (0.70-1.30); GLOMERULAR FILTRATION RATE > 60.0 (>49); GLUCOSE, FASTING 252 MG/DL (70-100); MAGNESIUM LEVEL 2.9 MG/DL (1.8-2.4); POTASSIUM SERUM 3.8 MEQ/L (3.5-5.1); SODIUM LEVEL 142 MEQ/L (136-145)
[2017-06-09 04:45] LABS: FERRITIN 514 NG/ML (26-388); IRON (FE) 86 UG/DL (65-175); PERCENT SATURATION 38.1 % (19.7-50.0); TOTAL IRON BINDING CAPACITY 226 UG/DL (250-450)
[2017-06-09] MEDS: LEVOTHYROXINE 75MCG TABLET (0.075MG) PO (06:20)
[2017-06-09] MEDS: SLF 3 ML SYR IV ×3 (06:20→21:55)
[2017-06-09] MEDS: HumaLOG INSULIN (NovoLOG) PER UNIT SC ×4 (07:50→21:53)
[2017-06-09] MEDS: LEVEMIR (INSULIN DETEMIR) 1 UNITS/0.01ML SC ×2 (08:43→21:53)
[2017-06-09] MEDS: GABAPENTIN 400 MG CAP PO ×2 (08:43→21:54)
[2017-06-09] MEDS: SENOKOT S TAB PO ×2 (08:44→21:00)
[2017-06-09] MEDS: TIMOLOL MALEATE 0.5% OPHTH SOLN 5 ML OU (08:44)
[2017-06-09] MEDS: FOLIC ACID 1 MG TAB PO (08:44)
[2017-06-09] MEDS: FAMOTIDINE 20 MG TAB PO ×2 (08:44→21:54)
[2017-06-09] MEDS: MULTIVITAMINS/MINERALS THERAP 1 TAB PO (08:44)
[2017-06-09] MEDS: SERTRALINE HCL 50 MG TAB PO (08:44)
[2017-06-09] MEDS: ACETAMINOPHEN 650MG ER TAB (TYLENOL ARTHRITIS) PO ×2 (08:44→21:54)
[2017-06-09] MEDS: MAGNESIUM OXIDE 400 MG TAB (MAG-OX) PO (08:44)
[2017-06-09] MEDS: PREPARATION H OINTMENT (HEMORRHOID) PR ×2 (08:45→21:54)
[2017-06-09 11:47] LABS: BEDSIDE GLUCOSE 327 MG/DL (80-115)
[2017-06-09 16:58] LABS: BEDSIDE GLUCOSE 367 MG/DL (80-115)
[2017-06-09 19:53] LABS: BEDSIDE GLUCOSE 303 MG/DL (80-115)
[2017-06-09] MEDS: LACTULOSE 20 GM/30 ML SYRUP UD PO (21:00)
[2017-06-09] MEDS: MIRALAX *UNIT DOSE* 17GM PACKET PO (21:00)
[2017-06-09] MEDS: BRIMONIDINE 0.15% OPHTH SOLN 5 ML OU (21:53)
[2017-06-09] MEDS: tiZANidine 4 MG TAB PO (21:54)
[2017-06-09] MEDS: TAMSULOSIN 0.4 MG CAP PO (21:55)
[2017-06-09] MEDS: AZITHROMYCIN INJ 500 MG, VIAL MATE ADAPTER 1 EACH in D5W 250 ML IV (21:55)
[2017-06-10] MEDS: methylPREDNISolone INJ 125 MG/2 ML VIAL (J2930) IV ×5 (00:01→23:55)
[2017-06-10] MEDS: CEFEPIME HCL 1 GM in D5W MINI-BAG PLUS 50 ML IV (03:19)
[2017-06-10 05:12] LABS: HEMATOCRIT 26.8 % (42.0-52.0); HEMOGLOBIN 8.7 g/dl (14.0-18.0); MEAN CORPUSCULAR HEMOGLOBIN 33.5 pg (27.0-33.0); MEAN CORPUSCULAR HGB CONC 32.5 g/dl (32.0-36.5); MEAN CORPUSCULAR VOLUME 103.1 fl (80.0-96.0); PLATELET COUNT, AUTOMATED 109 10^3/uL (150-450); RED CELL DISTRIBUTION WIDTH 16.5 % (11.5-14.5); WHITE BLOOD COUNT 5.1 10^3/uL (4.0-10.0)
[2017-06-10 05:31] LABS: ANION GAP 10 MEQ/L (8-16); BLOOD UREA NITROGEN 31 MG/DL (7-18); C REACTIVE PROTEIN QUANTITATIV 1.06 MG/DL (0.00-0.30); CALCIUM LEVEL 8.3 MG/DL (8.8-10.2); CARBON DIOXIDE LEVEL 21 MEQ/L (21-32); CHLORIDE LEVEL 110 MEQ/L (98-107); CREATININE FOR GFR 0.95 MG/DL (0.70-1.30); GLOMERULAR FILTRATION RATE > 60.0 (>49); GLUCOSE, FASTING 255 MG/DL (70-100); MAGNESIUM LEVEL 3.1 MG/DL (1.8-2.4); POTASSIUM SERUM 3.9 MEQ/L (3.5-5.1); SODIUM LEVEL 141 MEQ/L (136-145)
[2017-06-10] MEDS: SLF 3 ML SYR IV ×3 (05:57→22:44)
[2017-06-10] MEDS: LEVOTHYROXINE 75MCG TABLET (0.075MG) PO (05:57)
[2017-06-10] MEDS ORDERED: FENTANYL REMOVAL DOCUMENTATION MISC XX (09:00)
[2017-06-10] MEDS: LEVEMIR (INSULIN DETEMIR) 1 UNITS/0.01ML SC ×2 (09:18→20:55)
[2017-06-10] MEDS: ACETAMINOPHEN 650MG ER TAB (TYLENOL ARTHRITIS) PO ×2 (09:19→20:41)
[2017-06-10] MEDS: AMPICILLIN SOD 2 GM in D5W MINI-BAG PLUS 100 ML IV ×5 (09:19→23:55)
[2017-06-10] MEDS: HumaLOG INSULIN (NovoLOG) PER UNIT SC ×4 (09:19→20:55)
[2017-06-10] MEDS: SENOKOT S TAB PO ×2 (09:20→20:43)
[2017-06-10] MEDS: GABAPENTIN 400 MG CAP PO ×2 (09:20→20:41)
[2017-06-10] MEDS: FOLIC ACID 1 MG TAB PO (09:20)
[2017-06-10] MEDS: MULTIVITAMINS/MINERALS THERAP 1 TAB PO (09:20)
[2017-06-10] MEDS: SERTRALINE HCL 50 MG TAB PO (09:20)
[2017-06-10] MEDS: MAGNESIUM OXIDE 400 MG TAB (MAG-OX) PO (09:20)
[2017-06-10] MEDS: FAMOTIDINE 20 MG TAB PO ×2 (09:20→20:41)
[2017-06-10] MEDS: PREPARATION H OINTMENT (HEMORRHOID) PR ×2 (09:21→21:00)
[2017-06-10] MEDS: TIMOLOL MALEATE 0.5% OPHTH SOLN 5 ML OU (09:21)
[2017-06-10] MEDS: fentaNYL 75 MCG/HR PATCH TD (09:29)
[2017-06-10 11:18] LABS: VITAMIN B12 LEVEL 875 PG/ML (247-911)
[2017-06-10 11:38] LABS: FOLATE 23.3 NG/ML (>5.4)
[2017-06-10 12:20] LABS: BEDSIDE GLUCOSE 320 MG/DL (80-115)
[2017-06-10 17:02] LABS: BEDSIDE GLUCOSE 279 MG/DL (80-115)
[2017-06-10 20:36] LABS: BEDSIDE GLUCOSE 352 MG/DL (80-115)
[2017-06-10] MEDS: TAMSULOSIN 0.4 MG CAP PO (20:41)
[2017-06-10] MEDS: tiZANidine 4 MG TAB PO (20:41)
[2017-06-10] MEDS: LACTULOSE 20 GM/30 ML SYRUP UD PO (20:43)
[2017-06-10] MEDS: MIRALAX *UNIT DOSE* 17GM PACKET PO (20:43)
[2017-06-10] MEDS: BRIMONIDINE 0.15% OPHTH SOLN 5 ML OU (20:44)
[2017-06-10 20:57] LABS: BEDSIDE GLUCOSE 350 MG/DL (80-115)
[2017-06-11] MEDS: AMPICILLIN SOD 2 GM in D5W MINI-BAG PLUS 100 ML IV ×5 (04:50→22:09)
[2017-06-11] MEDS: methylPREDNISolone INJ 125 MG/2 ML VIAL (J2930) IV ×3 (05:43→17:54)
[2017-06-11] MEDS: LEVOTHYROXINE 75MCG TABLET (0.075MG) PO (05:43)
[2017-06-11] MEDS: SLF 3 ML SYR IV ×3 (05:44→22:00)
[2017-06-11 06:02] LABS: HEMATOCRIT 27.2 % (42.0-52.0); MEAN CORPUSCULAR HGB CONC 33.1 g/dl (32.0-36.5); MEAN CORPUSCULAR VOLUME 102.6 fl (80.0-96.0); PLATELET COUNT, AUTOMATED 104 10^3/uL (150-450); RED BLOOD COUNT 2.65 10^6/uL (4.30-6.10); RED CELL DISTRIBUTION WIDTH 16.5 % (11.5-14.5)
[2017-06-11 06:27] LABS: ANION GAP 10 MEQ/L (8-16); BLOOD UREA NITROGEN 30 MG/DL (7-18); C REACTIVE PROTEIN QUANTITATIV 0.36 MG/DL (0.00-0.30); CALCIUM LEVEL 8.2 MG/DL (8.8-10.2); CARBON DIOXIDE LEVEL 24 MEQ/L (21-32); CHLORIDE LEVEL 110 MEQ/L (98-107); CREATININE FOR GFR 0.97 MG/DL (0.70-1.30); GLOMERULAR FILTRATION RATE > 60.0 (>49); GLUCOSE, FASTING 258 MG/DL (70-100); MAGNESIUM LEVEL 3.2 MG/DL (1.8-2.4); POTASSIUM SERUM 3.5 MEQ/L (3.5-5.1); SODIUM LEVEL 144 MEQ/L (136-145)
[2017-06-11 08:06] LABS: TRANSFERRIN 186 mg/dL (200-370)
[2017-06-11] MEDS: HumaLOG INSULIN (NovoLOG) PER UNIT SC ×4 (08:40→22:10)
[2017-06-11] MEDS: GABAPENTIN 400 MG CAP PO ×2 (08:41→22:10)
[2017-06-11] MEDS: FAMOTIDINE 20 MG TAB PO ×2 (08:41→22:11)
[2017-06-11] MEDS: LEVEMIR (INSULIN DETEMIR) 1 UNITS/0.01ML SC ×2 (08:41→22:10)
[2017-06-11] MEDS: FOLIC ACID 1 MG TAB PO (08:42)
[2017-06-11] MEDS: ACETAMINOPHEN 650MG ER TAB (TYLENOL ARTHRITIS) PO ×2 (08:42→22:11)
[2017-06-11] MEDS: SERTRALINE HCL 50 MG TAB PO (08:42)
[2017-06-11] MEDS: TIMOLOL MALEATE 0.5% OPHTH SOLN 5 ML OU (08:42)
[2017-06-11] MEDS: MULTIVITAMINS/MINERALS THERAP 1 TAB PO (08:42)
[2017-06-11] MEDS: SENOKOT S TAB PO ×2 (08:42→21:00)
[2017-06-11] MEDS: BACTRIM 160MG/800MG DS TAB PO (08:42)
[2017-06-11] MEDS: PREPARATION H OINTMENT (HEMORRHOID) PR ×2 (09:00→22:12)
[2017-06-11 11:35] LABS: BEDSIDE GLUCOSE 236 MG/DL (80-115)
[2017-06-11] MEDS ORDERED: LIDOCAINE 2% INJ 100 MG/5 ML SDV (FOR ANES.) As Ordered (12:23)
[2017-06-11] MEDS ORDERED: PROPOFOL 200 MG/20 ML VIAL As Ordered (12:23)
[2017-06-11] MEDS ORDERED: MIDAZOLAM INJ 2 MG/2 ML VIAL (J2250) As Ordered ×2 (13:43)
[2017-06-11] MEDS: LIDOCAINE 2% 5ML JELLY UROJET As Ordered (13:44)
[2017-06-11] MEDS ORDERED: KETAMINE HCL 200 MG/20 ML VIAL As Ordered (13:47)
[2017-06-11] MEDS ORDERED: fentaNYL 100 MCG/2 ML INJECTION (J3010) As Ordered (13:57)
[2017-06-11] MEDS: CONRAY-60 60% 50ML VIAL (Q9961) As Ordered (14:20)
[2017-06-11 14:55] LABS: BEDSIDE GLUCOSE 197 MG/DL (80-115)
[2017-06-11] MEDS ORDERED: MEPERIDINE INJ 25 MG/ML VIAL (J2175) IV (15:00)
[2017-06-11] MEDS ORDERED: PERCOCET 5MG/325MG TAB PO (15:00)
[2017-06-11] MEDS ORDERED: METOCLOPRAMIDE INJ 10MG/2ML VIAL (J2765) IV (15:00)
[2017-06-11] MEDS ORDERED: ONDANSETRON 4MG/2ML VIAL (J2405) IV ×2 (15:00→16:15)
[2017-06-11] MEDS ORDERED: fentaNYL 100 MCG/2 ML INJECTION (J3010) IV (15:00)
[2017-06-11] MEDS: LR 1,000 ML IV (15:00)
[2017-06-11 15:17] LABS: HEMATOCRIT 27.9 % (42.0-52.0); HEMOGLOBIN 9.2 g/dl (14.0-18.0); MEAN CORPUSCULAR HEMOGLOBIN 33.9 pg (27.0-33.0); PLATELET COUNT, AUTOMATED 120 10^3/uL (150-450); RED BLOOD COUNT 2.71 10^6/uL (4.30-6.10); RED CELL DISTRIBUTION WIDTH 16.5 % (11.5-14.5); WHITE BLOOD COUNT 3.7 10^3/uL (4.0-10.0)
[2017-06-11 15:39] LABS: ANION GAP 8 MEQ/L (8-16); BLOOD UREA NITROGEN 31 MG/DL (7-18); CALCIUM LEVEL 8.5 MG/DL (8.8-10.2); CARBON DIOXIDE LEVEL 25 MEQ/L (21-32); CHLORIDE LEVEL 111 MEQ/L (98-107); GLOMERULAR FILTRATION RATE > 60.0 (>49); GLUCOSE, FASTING 182 MG/DL (70-100); POTASSIUM SERUM 3.6 MEQ/L (3.5-5.1); SODIUM LEVEL 144 MEQ/L (136-145)
[2017-06-11] MEDS ORDERED: MORPHINE 4 MG/ML 1ML VIAL (J2270) IV (16:30)
[2017-06-11 17:14] LABS: BEDSIDE GLUCOSE 213 MG/DL (80-115)
[2017-06-11] MEDS: KCL 20MEQ IN D5/0.45NS 1000ML 1,000 ML IV (17:45)
[2017-06-11] MEDS: oxyCODONE 5MG TAB PO (19:11)
[2017-06-11] MEDS: MIRALAX *UNIT DOSE* 17GM PACKET PO (21:00)
[2017-06-11 21:47] LABS: BEDSIDE GLUCOSE 282 MG/DL (80-115)
[2017-06-11] MEDS: LACTULOSE 20 GM/30 ML SYRUP UD PO (22:09)
[2017-06-11] MEDS: BRIMONIDINE 0.15% OPHTH SOLN 5 ML OU (22:11)
[2017-06-11] MEDS: TAMSULOSIN 0.4 MG CAP PO (22:16)
[2017-06-11] MEDS: tiZANidine 4 MG TAB PO (22:16)
[2017-06-12] MEDS: AMPICILLIN SOD 2 GM in D5W MINI-BAG PLUS 100 ML IV ×6 (00:36→21:37)
[2017-06-12] MEDS: methylPREDNISolone INJ 125 MG/2 ML VIAL (J2930) IV ×3 (00:37→12:27)
[2017-06-12] MEDS: SLF 3 ML SYR IV ×3 (05:06→21:41)
[2017-06-12] MEDS: LEVOTHYROXINE 75MCG TABLET (0.075MG) PO (05:06)
[2017-06-12] MEDS: oxyCODONE 5MG TAB PO (05:09)
[2017-06-12 06:12] LABS: HEMATOCRIT 27.4 % (42.0-52.0); MEAN CORPUSCULAR HEMOGLOBIN 33.2 pg (27.0-33.0); MEAN CORPUSCULAR HGB CONC 32.8 g/dl (32.0-36.5); MEAN CORPUSCULAR VOLUME 101.1 fl (80.0-96.0); PLATELET COUNT, AUTOMATED 103 10^3/uL (150-450); RED BLOOD COUNT 2.71 10^6/uL (4.30-6.10); RED CELL DISTRIBUTION WIDTH 16.5 % (11.5-14.5); WHITE BLOOD COUNT 3.6 10^3/uL (4.0-10.0)
[2017-06-12 06:23] LABS: ANION GAP 8 MEQ/L (8-16); BLOOD UREA NITROGEN 31 MG/DL (7-18); C REACTIVE PROTEIN QUANTITATIV < 0.30 MG/DL (0.00-0.30); CALCIUM LEVEL 8.2 MG/DL (8.8-10.2); CARBON DIOXIDE LEVEL 23 MEQ/L (21-32); CHLORIDE LEVEL 109 MEQ/L (98-107); GLOMERULAR FILTRATION RATE > 60.0 (>49); GLUCOSE, FASTING 213 MG/DL (70-100); MAGNESIUM LEVEL 3.1 MG/DL (1.8-2.4); POTASSIUM SERUM 3.8 MEQ/L (3.5-5.1); SODIUM LEVEL 140 MEQ/L (136-145)
[2017-06-12] MEDS: FAMOTIDINE 20 MG TAB PO ×2 (08:36→21:38)
[2017-06-12] MEDS: GABAPENTIN 400 MG CAP PO ×2 (08:36→21:38)
[2017-06-12] MEDS: FOLIC ACID 1 MG TAB PO (08:37)
[2017-06-12] MEDS: MULTIVITAMINS/MINERALS THERAP 1 TAB PO (08:37)
[2017-06-12] MEDS: SENOKOT S TAB PO ×2 (08:37→21:00)
[2017-06-12] MEDS: SERTRALINE HCL 50 MG TAB PO (08:37)
[2017-06-12] MEDS: HumaLOG INSULIN (NovoLOG) PER UNIT SC ×4 (08:38→21:39)
[2017-06-12] MEDS: LEVEMIR (INSULIN DETEMIR) 1 UNITS/0.01ML SC ×2 (08:40→21:40)
[2017-06-12] MEDS: PANTOPRAZOLE 40MG INJ (PROTONIX) (C9113) IV (08:40)
[2017-06-12] MEDS: PREPARATION H OINTMENT (HEMORRHOID) PR ×2 (08:41→21:41)
[2017-06-12] MEDS: KCL 20MEQ IN D5/0.45NS 1000ML 1,000 ML IV (08:41)
[2017-06-12] MEDS: TIMOLOL MALEATE 0.5% OPHTH SOLN 5 ML OU (08:41)
[2017-06-12 12:07] LABS: BEDSIDE GLUCOSE 255 MG/DL (80-115)
[2017-06-12] MEDS: predniSONE 20 MG TAB PO ×2 (16:08→21:38)
[2017-06-12 16:42] LABS: BEDSIDE GLUCOSE 256 MG/DL (80-115)
[2017-06-12] MEDS: MIRALAX *UNIT DOSE* 17GM PACKET PO (21:00)
[2017-06-12] MEDS: LACTULOSE 20 GM/30 ML SYRUP UD PO (21:00)
[2017-06-12 21:25] LABS: BEDSIDE GLUCOSE 298 MG/DL (80-115)
[2017-06-12] MEDS: TAMSULOSIN 0.4 MG CAP PO (21:38)
[2017-06-12] MEDS: tiZANidine 4 MG TAB PO (21:39)
[2017-06-12] MEDS: BRIMONIDINE 0.15% OPHTH SOLN 5 ML OU (21:40)
[2017-06-13] MEDS: KCL 20MEQ IN D5/0.45NS 1000ML 1,000 ML IV (00:12)
[2017-06-13] MEDS: AMPICILLIN SOD 2 GM in D5W MINI-BAG PLUS 100 ML IV ×4 (00:16→12:15)
[2017-06-13] MEDS: SLF 3 ML SYR IV ×2 (06:00→12:15)
[2017-06-13] MEDS: LEVOTHYROXINE 75MCG TABLET (0.075MG) PO (06:05)
[2017-06-13 06:14] LABS: HEMATOCRIT 27.2 % (42.0-52.0); HEMOGLOBIN 9.1 g/dl (14.0-18.0); MEAN CORPUSCULAR HEMOGLOBIN 34.1 pg (27.0-33.0); MEAN CORPUSCULAR HGB CONC 33.5 g/dl (32.0-36.5); MEAN CORPUSCULAR VOLUME 101.9 fl (80.0-96.0); PLATELET COUNT, AUTOMATED 106 10^3/uL (150-450); RED BLOOD COUNT 2.67 10^6/uL (4.30-6.10); RED CELL DISTRIBUTION WIDTH 16.7 % (11.5-14.5); WHITE BLOOD COUNT 3.4 10^3/uL (4.0-10.0)
[2017-06-13 06:36] LABS: ANION GAP 10 MEQ/L (8-16); BLOOD UREA NITROGEN 25 MG/DL (7-18); C REACTIVE PROTEIN QUANTITATIV < 0.30 MG/DL (0.00-0.30); CALCIUM LEVEL 8.3 MG/DL (8.8-10.2); CARBON DIOXIDE LEVEL 22 MEQ/L (21-32); CHLORIDE LEVEL 111 MEQ/L (98-107); CREATININE FOR GFR 0.85 MG/DL (0.70-1.30); GLOMERULAR FILTRATION RATE > 60.0 (>49); GLUCOSE, FASTING 169 MG/DL (70-100); MAGNESIUM LEVEL 3.1 MG/DL (1.8-2.4); POTASSIUM SERUM 4.1 MEQ/L (3.5-5.1); SODIUM LEVEL 143 MEQ/L (136-145)
[2017-06-13] MEDS: BACTRIM 160MG/800MG DS TAB PO (09:10)
[2017-06-13] MEDS: FOLIC ACID 1 MG TAB PO (09:10)
[2017-06-13] MEDS: PANTOPRAZOLE 40MG INJ (PROTONIX) (C9113) IV (09:10)
[2017-06-13] MEDS: predniSONE 20 MG TAB PO (09:10)
[2017-06-13] MEDS: MULTIVITAMINS/MINERALS THERAP 1 TAB PO (09:10)
[2017-06-13] MEDS: HumaLOG INSULIN (NovoLOG) PER UNIT SC ×2 (09:10→12:15)
[2017-06-13] MEDS: GABAPENTIN 400 MG CAP PO (09:10)
[2017-06-13] MEDS: SERTRALINE HCL 50 MG TAB PO (09:10)
[2017-06-13] MEDS: LEVEMIR (INSULIN DETEMIR) 1 UNITS/0.01ML SC (09:10)
[2017-06-13] MEDS: FAMOTIDINE 20 MG TAB PO (09:10)
[2017-06-13] MEDS: SENOKOT S TAB PO (09:11)
[2017-06-13] MEDS: PREPARATION H OINTMENT (HEMORRHOID) PR (09:11)
[2017-06-13] MEDS: TIMOLOL MALEATE 0.5% OPHTH SOLN 5 ML OU (09:11)
[2017-06-13] MEDS: fentaNYL 75 MCG/HR PATCH TD (11:10)
[2017-06-13 12:14] LABS: BEDSIDE GLUCOSE 237 MG/DL (80-115)
[2017-06-13] MEDS: ACETAMINOPHEN 650MG ER TAB (TYLENOL ARTHRITIS) PO (14:08)
[2017-06-21 14:13] LABS: Ca Ox Monohydrate 70 % (.); Uric Acid 25 % (.)
== END 2017-06-13 18:25 | disposition home or self-care (01) | DRG 872 ==
LOC: M ED 14:40 → M ED INP 20:00 → M PCU 22:15
PROC: 0T9880Z Drainage of Bilateral Ureters with Drainage Device, Via Natural or Artificial Opening Endoscopic (ICD-10-PCS; principal; 2017-06-11 13:40)
PROC: 0TCB8ZZ Extirpation of Matter from Bladder, Via Natural or Artificial Opening Endoscopic (ICD-10-PCS; 2017-06-11 13:40)
DX: A41.81 Sepsis due to Enterococcus (principal); Z68.41 Body mass index [BMI] 40.0-44.9, adult; D84.9 Immunodeficiency, unspecified; N13.6 Pyonephrosis; E03.9 Hypothyroidism, unspecified; D86.89 Sarcoidosis of other sites; R33.9 Retention of urine, unspecified; E11.9 Type 2 diabetes mellitus without complications; B97.10 Unspecified enterovirus as the cause of diseases classified elsewhere; E66.01 Morbid (severe) obesity due to excess calories; K21.9 Gastro-esophageal reflux disease without esophagitis; Z87.440 Personal history of urinary (tract) infections; Z86.73 Personal history of transient ischemic attack (TIA), and cerebral infarction without residual deficits; Z96.0 Presence of urogenital implants; Z96.652 Presence of left artificial knee joint; Z79.4 Long term (current) use of insulin; Z79.52 Long term (current) use of systemic steroids; G47.33 Obstructive sleep apnea (adult) (pediatric); Z99.89 Dependence on other enabling machines and devices; B95.2 Enterococcus as the cause of diseases classified elsewhere

== ENCOUNTER → 2017-07-12 | Outpatient (CLI) | payer MEDICARE, OTHER | LOC: M RAD 16:43 | DX: N20.0 Calculus of kidney (principal); Z96.0 Presence of urogenital implants | CPT/HCPCS: 74176 ==

== ENCOUNTER 2017-07-19 16:10 | Inpatient (IN) | payer MEDICARE, OTHER ==
[2017-07-19 17:46] LABS: HEMATOCRIT 29.2 % (42.0-52.0); HEMOGLOBIN 9.6 g/dl (14.0-18.0); MEAN CORPUSCULAR HEMOGLOBIN 33.1 pg (27.0-33.0); MEAN CORPUSCULAR HGB CONC 32.9 g/dl (32.0-36.5); MEAN CORPUSCULAR VOLUME 100.7 fl (80.0-96.0); PLATELET COUNT, AUTOMATED 100 10^3/uL (150-450); RED CELL DISTRIBUTION WIDTH 17.7 % (11.5-14.5); WHITE BLOOD COUNT 7.5 10^3/uL (4.0-10.0)
[2017-07-19 17:48] LABS: VENOUS BASE EXCESS 0.7 (-2.0-2.0); VENOUS O2 SATURATION 97.2 % (60.0-80.0); VENOUS PARTIAL PRESSURE CO2 38.5 mmHg (38.0-50.0); VENOUS PARTIAL PRESSURE O2 101.1 mmHg (30.0-50.0); VENOUS STANDARD HCO3 25.1 MEQ/L; VENOUS TOTAL CO2 26.2 MEQ/L (24.0-28.0)
[2017-07-19] MEDS: NS 1,000 ML IV ×2 (17:54→19:19)
[2017-07-19 17:58] LABS: BEDSIDE GLUCOSE 310 MG/DL (80-115)
[2017-07-19 18:07] LABS: ADD MANUAL DIFFER YES; DIFF SLIDE NUMBER 292; KETONE, URINE AUTO RFX NEGATIVE (NEGATIVE); MUCUS, URINE RFX SMALL (NEGATIVE); NITRITE, URINE AUTO RFX NEGATIVE (NEGATIVE); POSITIVE DIFF POS FLAG; RBC, URINE AUTO RFX 17 /HPF (0-3); SPECIFIC GRAVITY UR AUTO RFX 1.011 (1.002-1.035); SQUAM EPITHELIAL CELL UR AURFX 0 /HPF (0-6)
[2017-07-19 18:08] LABS: LEUKOCYTE ESTERASE UR AUTO RFX 3+ (NEGATIVE); WBC, URINE AUTO RFX 32 /HPF (0-3)
[2017-07-19 18:08] LABS: AMMONIA 15 uMOL/L (<32)
[2017-07-19 18:14] LABS: ACETAMINOPHEN LEVEL < 2.0 UG/ML (10.0-30.0); ALBUMIN 2.8 GM/DL (3.2-5.2); ALBUMIN/GLOBULIN RATIO 0.88 (1.00-1.93); ALKALINE PHOSPHATASE 80 U/L (45-117); ALT/SGPT 28 U/L (12-78); ANION GAP 9 MEQ/L (8-16); AST/SGOT 18 U/L (7-37); BILIRUBIN,DIRECT 0.2 MG/DL (0.0-0.2); BILIRUBIN,TOTAL 0.9 MG/DL (0.2-1.0); BLOOD UREA NITROGEN 49 MG/DL (7-18); CALCIUM LEVEL 8.1 MG/DL (8.8-10.2); CARBON DIOXIDE LEVEL 26 MEQ/L (21-32); CHLORIDE LEVEL 99 MEQ/L (98-107); CPK CREATINE PHOSPHOKINASE 23 U/L (39-308); CREATININE FOR GFR 1.27 MG/DL (0.70-1.30); ETHYL ALCOHOL (ETHANOL) 0.003 % (0.000-0.010); GLUCOSE, FASTING 293 MG/DL (70-100); POTASSIUM SERUM 4.4 MEQ/L (3.5-5.1); SALICYLATE LEVEL < 1.7 MG/DL (5.0-30.0); SODIUM LEVEL 134 MEQ/L (136-145); TROPONIN I < 0.02 NG/ML (< 0.10)
[2017-07-19 18:17] LABS: AMPHETAMINES LEVEL URINE NEGATIVE (NEGATIVE); BARBITURATES URINE NEGATIVE (NEGATIVE); BENZODIAZEPINES URINE NEGATIVE (NEGATIVE); CANNABINOIDS URINE NEGATIVE (NEGATIVE); COCAINE METABOLITE URINE NEGATIVE (NEGATIVE); METHADONE URINE NEGATIVE (NEGATIVE); OPIATES URINE POSITIVE (NEGATIVE); PHENCYCLIDINE URINE NEGATIVE (NEGATIVE)
[2017-07-19 18:19] LABS: ANISOCYTOSIS 2+; MONOCYTES 1 % (0-8); NEUTROPHILS 99 % (35-75)
[2017-07-19 18:20] LABS: CK-MB VALUE MASS < 1.0 NG/ML (<3.6); MB/CK RELATIVE INDEX 4.34 (< OR =4); NT-PRO BNP 891 PG/ML (<125); PLATELET ESTIMATE NORMAL (NORMAL)
[2017-07-19 18:28] LABS: LACTIC ACID SEPSIS PROTOCOL 2.6 MMOL/L (0.4-2.0)
[2017-07-19] MEDS ORDERED: ONDANSETRON 4MG/2ML VIAL (J2405) IV (21:00)
[2017-07-19] MEDS ORDERED: BISACODYL 5 MG TAB PO (21:00)
[2017-07-19] MEDS: HumaLOG INSULIN (NovoLOG) PER UNIT SC (21:00)
[2017-07-19] MEDS: BRIMONIDINE 0.15% OPHTH SOLN 5 ML OU (21:00)
[2017-07-19] MEDS ORDERED: ACETAMINOPHEN TAB 650MG DOSE (2X325MG) PO (21:00)
[2017-07-19] MEDS ORDERED: DEXTROSE 50% 50 ML SYRINGE IV (21:15)
[2017-07-19] MEDS ORDERED: GLUCOSE 4 GM CHEW TABLET PO (21:15)
[2017-07-19] MEDS ORDERED: GLUCAGON FOR INJ 1 MG VIAL (J1610) SC (21:15)
[2017-07-19] MEDS ORDERED: NYSTATIN 100,000 UNITS/GM TOPICAL PWD 15 GM TOP (22:15)
[2017-07-19] MEDS ORDERED: EXCEDRIN MIGRAINE TABLET PO (22:15)
[2017-07-20] MEDS: NS 1,000 ML IV ×3 (01:48→23:33)
[2017-07-20] MEDS: FAMOTIDINE 20 MG TAB PO ×3 (02:05→20:52)
[2017-07-20] MEDS: GABAPENTIN 400 MG CAP PO ×3 (02:05→20:52)
[2017-07-20] MEDS: TAMSULOSIN 0.4 MG CAP PO ×2 (02:05→20:52)
[2017-07-20] MEDS: MIRALAX *UNIT DOSE* 17GM PACKET PO ×2 (02:06→20:51)
[2017-07-20] MEDS: LACTULOSE 20 GM/30 ML SYRUP UD PO ×2 (02:06→20:51)
[2017-07-20] MEDS: LEVEMIR (INSULIN DETEMIR) 1 UNITS/0.01ML SC ×3 (02:07→20:53)
[2017-07-20] MEDS: oxyCODONE 5MG TAB PO ×3 (02:10→22:13)
[2017-07-20 02:11] LABS: BEDSIDE GLUCOSE 202 MG/DL (80-115)
[2017-07-20] MEDS: LEVOTHYROXINE 75MCG TABLET (0.075MG) PO (05:32)
[2017-07-20] MEDS: HEPARIN SOD (PORCINE) 5000 UNITS/ML VIAL SC ×3 (05:33→21:23)
[2017-07-20 05:35] LABS: EOS % 0.2 % (0.0-3.0); HEMOGLOBIN 8.5 g/dl (14.0-18.0); IMMATURE GRANULOCYTE % 0.6 % (0-3.0); LYMPH # 0.3 10^3/uL (1.5-4.5); LYMPH % 5.8 % (24.0-44.0); MEAN CORPUSCULAR HEMOGLOBIN 32.9 pg (27.0-33.0); MEAN CORPUSCULAR HGB CONC 32.7 g/dl (32.0-36.5); MEAN CORPUSCULAR VOLUME 100.8 fl (80.0-96.0); MONO # 0.1 10^3/uL (0.0-0.8); MONO % 2.3 % (0.0-5.0); NEUTROPHILS # 4.4 10^3/uL (1.8-7.7); NEUTROPHILS % 91.1 % (36.0-66.0); PLATELET COUNT, AUTOMATED 109 10^3/uL (150-450); RED BLOOD COUNT 2.58 10^6/uL (4.30-6.10); RED CELL DISTRIBUTION WIDTH 17.5 % (11.5-14.5); WHITE BLOOD COUNT 4.8 10^3/uL (4.0-10.0)
[2017-07-20 05:53] LABS: POSITIVE DIFF POS FLAG
[2017-07-20 05:59] LABS: ANION GAP 6 MEQ/L (8-16); BLOOD UREA NITROGEN 45 MG/DL (7-18); CALCIUM LEVEL 8.2 MG/DL (8.8-10.2); CARBON DIOXIDE LEVEL 29 MEQ/L (21-32); CHLORIDE LEVEL 105 MEQ/L (98-107); CREATININE FOR GFR 0.94 MG/DL (0.70-1.30); GLOMERULAR FILTRATION RATE > 60.0 (>49); GLUCOSE, FASTING 127 MG/DL (70-100); MAGNESIUM LEVEL 2.5 MG/DL (1.8-2.4); POTASSIUM SERUM 3.6 MEQ/L (3.5-5.1); SODIUM LEVEL 140 MEQ/L (136-145)
[2017-07-20] MEDS: PREPARATION H OINTMENT (HEMORRHOID) PR ×2 (09:00→20:53)
[2017-07-20] MEDS ORDERED: ISOVUE-370 76% 100ML VIAL (Q9967) As Ordered (09:02)
[2017-07-20] MEDS: MAGNESIUM OXIDE 400 MG TAB (MAG-OX) PO (10:11)
[2017-07-20] MEDS: FOLIC ACID 1 MG TAB PO (10:11)
[2017-07-20] MEDS: SERTRALINE HCL 50 MG TAB PO (10:11)
[2017-07-20] MEDS: predniSONE 20 MG TAB PO (10:11)
[2017-07-20] MEDS: MULTIVITAMINS/MINERALS THERAP 1 TAB PO (10:11)
[2017-07-20] MEDS: HumaLOG INSULIN (NovoLOG) PER UNIT SC ×4 (10:13→22:14)
[2017-07-20] MEDS: LevoFLOXacin IV 500 MG in APPROPRIATE DILUENT 1 EA IV (10:13)
[2017-07-20] MEDS: TIMOLOL MALEATE 0.5% OPHTH SOLN 5 ML OU (10:20)
[2017-07-20 11:58] LABS: BEDSIDE GLUCOSE 141 MG/DL (80-115)
[2017-07-20 16:49] LABS: BEDSIDE GLUCOSE 219 MG/DL (80-115)
[2017-07-20] MEDS: tiZANidine 4 MG TAB PO (20:52)
[2017-07-20] MEDS: BRIMONIDINE 0.15% OPHTH SOLN 5 ML OU (20:53)
[2017-07-20] MEDS ORDERED: BRIMONIDINE 0.15% OPHTH SOLN 5 ML OU (21:00)
[2017-07-20 22:00] LABS: BEDSIDE GLUCOSE 254 MG/DL (80-115)
[2017-07-21] MEDS: LEVOTHYROXINE 75MCG TABLET (0.075MG) PO (05:28)
[2017-07-21] MEDS: HEPARIN SOD (PORCINE) 5000 UNITS/ML VIAL SC ×3 (05:29→21:44)
[2017-07-21 05:40] LABS: BASO % 0.3 % (0.0-1.0); EOS % 0.3 % (0.0-3.0); HEMATOCRIT 26.4 % (42.0-52.0); HEMOGLOBIN 8.6 g/dl (14.0-18.0); IMMATURE GRANULOCYTE % 0.8 % (0-3.0); LYMPH # 0.3 10^3/uL (1.5-4.5); LYMPH % 8.5 % (24.0-44.0); MEAN CORPUSCULAR HEMOGLOBIN 33.1 pg (27.0-33.0); MEAN CORPUSCULAR HGB CONC 32.6 g/dl (32.0-36.5); MEAN CORPUSCULAR VOLUME 101.5 fl (80.0-96.0); MONO # 0.1 10^3/uL (0.0-0.8); MONO % 1.9 % (0.0-5.0); NEUTROPHILS # 3.3 10^3/uL (1.8-7.7); NEUTROPHILS % 88.2 % (36.0-66.0); PLATELET COUNT, AUTOMATED 105 10^3/uL (150-450); RED CELL DISTRIBUTION WIDTH 17.1 % (11.5-14.5); WHITE BLOOD COUNT 3.8 10^3/uL (4.0-10.0)
[2017-07-21 05:59] LABS: ANION GAP 5 MEQ/L (8-16); BLOOD UREA NITROGEN 28 MG/DL (7-18); CALCIUM LEVEL 8.4 MG/DL (8.8-10.2); CARBON DIOXIDE LEVEL 27 MEQ/L (21-32); CHLORIDE LEVEL 112 MEQ/L (98-107); CREATININE FOR GFR 0.75 MG/DL (0.70-1.30); GLOMERULAR FILTRATION RATE > 60.0 (>49); GLUCOSE, FASTING 103 MG/DL (70-100); MAGNESIUM LEVEL 2.6 MG/DL (1.8-2.4); POTASSIUM SERUM 3.9 MEQ/L (3.5-5.1); SODIUM LEVEL 144 MEQ/L (136-145)
[2017-07-21] MEDS: PREPARATION H OINTMENT (HEMORRHOID) PR ×2 (09:00→21:00)
[2017-07-21] MEDS: SERTRALINE HCL 50 MG TAB PO (09:05)
[2017-07-21] MEDS: FAMOTIDINE 20 MG TAB PO ×2 (09:05→21:41)
[2017-07-21] MEDS: predniSONE 20 MG TAB PO (09:05)
[2017-07-21] MEDS: FOLIC ACID 1 MG TAB PO (09:05)
[2017-07-21] MEDS: MAGNESIUM OXIDE 400 MG TAB (MAG-OX) PO (09:05)
[2017-07-21] MEDS: MULTIVITAMINS/MINERALS THERAP 1 TAB PO (09:05)
[2017-07-21] MEDS: HumaLOG INSULIN (NovoLOG) PER UNIT SC ×4 (09:06→21:00)
[2017-07-21] MEDS: GABAPENTIN 400 MG CAP PO ×2 (09:06→21:41)
[2017-07-21] MEDS: LevoFLOXacin IV 500 MG in APPROPRIATE DILUENT 1 EA IV (09:07)
[2017-07-21] MEDS: TIMOLOL MALEATE 0.5% OPHTH SOLN 5 ML OU (09:07)
[2017-07-21] MEDS: LEVEMIR (INSULIN DETEMIR) 1 UNITS/0.01ML SC ×2 (09:19→21:43)
[2017-07-21 12:18] LABS: BEDSIDE GLUCOSE 175 MG/DL (80-115)
[2017-07-21 17:01] LABS: BEDSIDE GLUCOSE 212 MG/DL (80-115)
[2017-07-21] MEDS: oxyCODONE 5MG TAB PO ×2 (17:48→21:42)
[2017-07-21] MEDS: BRIMONIDINE 0.15% OPHTH SOLN 5 ML OU (21:00)
[2017-07-21 21:25] LABS: BEDSIDE GLUCOSE 230 MG/DL (80-115)
[2017-07-21] MEDS: MIRALAX *UNIT DOSE* 17GM PACKET PO (21:40)
[2017-07-21] MEDS: LACTULOSE 20 GM/30 ML SYRUP UD PO (21:41)
[2017-07-21] MEDS: TAMSULOSIN 0.4 MG CAP PO (21:41)
[2017-07-21] MEDS: tiZANidine 4 MG TAB PO (21:41)
[2017-07-22] MEDS: LEVOTHYROXINE 75MCG TABLET (0.075MG) PO (05:44)
[2017-07-22] MEDS: HEPARIN SOD (PORCINE) 5000 UNITS/ML VIAL SC ×3 (05:44→21:16)
[2017-07-22 05:54] LABS: EOS % 0.6 % (0.0-3.0); HEMATOCRIT 26.2 % (42.0-52.0); HEMOGLOBIN 8.3 g/dl (14.0-18.0); IMMATURE GRANULOCYTE % 0.6 % (0-3.0); LYMPH # 0.3 10^3/uL (1.5-4.5); LYMPH % 8.8 % (24.0-44.0); MEAN CORPUSCULAR HEMOGLOBIN 32.4 pg (27.0-33.0); MEAN CORPUSCULAR HGB CONC 31.7 g/dl (32.0-36.5); MEAN CORPUSCULAR VOLUME 102.3 fl (80.0-96.0); MONO # 0.1 10^3/uL (0.0-0.8); MONO % 1.6 % (0.0-5.0); NEUTROPHILS # 2.8 10^3/uL (1.8-7.7); NEUTROPHILS % 88.4 % (36.0-66.0); PLATELET COUNT, AUTOMATED 118 10^3/uL (150-450); RED BLOOD COUNT 2.56 10^6/uL (4.30-6.10); RED CELL DISTRIBUTION WIDTH 17.1 % (11.5-14.5); WHITE BLOOD COUNT 3.2 10^3/uL (4.0-10.0)
[2017-07-22 05:59] LABS: POSITIVE DIFF POS FLAG
[2017-07-22 06:10] LABS: ANION GAP 8 MEQ/L (8-16); BLOOD UREA NITROGEN 20 MG/DL (7-18); CALCIUM LEVEL 8.2 MG/DL (8.8-10.2); CARBON DIOXIDE LEVEL 25 MEQ/L (21-32); CHLORIDE LEVEL 112 MEQ/L (98-107); CREATININE FOR GFR 0.72 MG/DL (0.70-1.30); GLOMERULAR FILTRATION RATE > 60.0 (>49); GLUCOSE, FASTING 114 MG/DL (70-100); MAGNESIUM LEVEL 2.6 MG/DL (1.8-2.4); POTASSIUM SERUM 3.9 MEQ/L (3.5-5.1); SODIUM LEVEL 145 MEQ/L (136-145)
[2017-07-22] MEDS ORDERED: BACTRIM 160MG/800MG DS TAB PO (07:30)
[2017-07-22] MEDS: MAGNESIUM OXIDE 400 MG TAB (MAG-OX) PO (08:11)
[2017-07-22] MEDS: MULTIVITAMINS/MINERALS THERAP 1 TAB PO (08:11)
[2017-07-22] MEDS: FAMOTIDINE 20 MG TAB PO ×2 (08:11→21:00)
[2017-07-22] MEDS: FOLIC ACID 1 MG TAB PO (08:11)
[2017-07-22] MEDS: GABAPENTIN 400 MG CAP PO ×2 (08:11→21:16)
[2017-07-22] MEDS: oxyBUTYnin *DITROPAN XL* 5 MG TABCR PO (08:12)
[2017-07-22] MEDS: predniSONE 20 MG TAB PO (08:12)
[2017-07-22] MEDS: LEVEMIR (INSULIN DETEMIR) 1 UNITS/0.01ML SC ×2 (08:13→21:00)
[2017-07-22] MEDS: HumaLOG INSULIN (NovoLOG) PER UNIT SC ×4 (08:13→20:40)
[2017-07-22] MEDS: SERTRALINE HCL 50 MG TAB PO (08:14)
[2017-07-22] MEDS: LevoFLOXacin IV 500 MG in APPROPRIATE DILUENT 1 EA IV (08:16)
[2017-07-22] MEDS: PREPARATION H OINTMENT (HEMORRHOID) PR ×2 (08:19→21:00)
[2017-07-22] MEDS: TIMOLOL MALEATE 0.5% OPHTH SOLN 5 ML OU (08:19)
[2017-07-22] MEDS: fentaNYL 75 MCG/HR PATCH TOP (11:07)
[2017-07-22] MEDS: FENTANYL REMOVAL DOCUMENTATION MISC XX (12:46)
[2017-07-22 12:49] LABS: BEDSIDE GLUCOSE 160 MG/DL (80-115)
[2017-07-22] MEDS: oxyCODONE 5MG TAB PO ×3 (13:10→18:35)
[2017-07-22 17:12] LABS: BEDSIDE GLUCOSE 187 MG/DL (80-115)
[2017-07-22 20:29] LABS: BEDSIDE GLUCOSE 237 MG/DL (80-115)
[2017-07-22] MEDS: BRIMONIDINE 0.15% OPHTH SOLN 5 ML OU ×2 (21:00)
[2017-07-22] MEDS: LACTULOSE 20 GM/30 ML SYRUP UD PO (21:16)
[2017-07-22] MEDS: TAMSULOSIN 0.4 MG CAP PO (21:17)
[2017-07-22] MEDS: MIRALAX *UNIT DOSE* 17GM PACKET PO (21:17)
[2017-07-22] MEDS: tiZANidine 4 MG TAB PO (21:17)
[2017-07-23] MEDS: HEPARIN SOD (PORCINE) 5000 UNITS/ML VIAL SC ×3 (05:36→21:27)
[2017-07-23] MEDS: LEVOTHYROXINE 75MCG TABLET (0.075MG) PO (05:36)
[2017-07-23 06:10] LABS: EOS % 0.8 % (0.0-3.0); HEMOGLOBIN 8.5 g/dl (14.0-18.0); IMMATURE GRANULOCYTE % 1.2 % (0-3.0); LYMPH # 0.3 10^3/uL (1.5-4.5); LYMPH % 11.3 % (24.0-44.0); MEAN CORPUSCULAR HEMOGLOBIN 32.2 pg (27.0-33.0); MEAN CORPUSCULAR HGB CONC 31.5 g/dl (32.0-36.5); MEAN CORPUSCULAR VOLUME 102.3 fl (80.0-96.0); MONO # 0.1 10^3/uL (0.0-0.8); MONO % 2.8 % (0.0-5.0); NEUTROPHILS # 2.1 10^3/uL (1.8-7.7); NEUTROPHILS % 83.9 % (36.0-66.0); PLATELET COUNT, AUTOMATED 121 10^3/uL (150-450); RED BLOOD COUNT 2.64 10^6/uL (4.30-6.10); RED CELL DISTRIBUTION WIDTH 17.3 % (11.5-14.5); WHITE BLOOD COUNT 2.5 10^3/uL (4.0-10.0)
[2017-07-23 06:30] LABS: ANION GAP 5 MEQ/L (8-16); BLOOD UREA NITROGEN 17 MG/DL (7-18); CALCIUM LEVEL 8.5 MG/DL (8.8-10.2); CARBON DIOXIDE LEVEL 24 MEQ/L (21-32); CHLORIDE LEVEL 114 MEQ/L (98-107); CREATININE FOR GFR 0.72 MG/DL (0.70-1.30); GLOMERULAR FILTRATION RATE > 60.0 (>49); GLUCOSE, FASTING 135 MG/DL (70-100); MAGNESIUM LEVEL 2.8 MG/DL (1.8-2.4); POTASSIUM SERUM 4.2 MEQ/L (3.5-5.1); SODIUM LEVEL 143 MEQ/L (136-145)
[2017-07-23 06:39] LABS: POSITIVE DIFF POS FLAG
[2017-07-23] MEDS: HumaLOG INSULIN (NovoLOG) PER UNIT SC ×4 (08:25→21:27)
[2017-07-23] MEDS: LEVEMIR (INSULIN DETEMIR) 1 UNITS/0.01ML SC ×2 (08:26→21:00)
[2017-07-23] MEDS: LevoFLOXacin IV 500 MG in APPROPRIATE DILUENT 1 EA IV (08:26)
[2017-07-23] MEDS: FAMOTIDINE 20 MG TAB PO ×2 (08:27→21:25)
[2017-07-23] MEDS: FOLIC ACID 1 MG TAB PO (08:27)
[2017-07-23] MEDS: oxyBUTYnin *DITROPAN XL* 5 MG TABCR PO (08:27)
[2017-07-23] MEDS: predniSONE 20 MG TAB PO (08:27)
[2017-07-23] MEDS: TIMOLOL MALEATE 0.5% OPHTH SOLN 5 ML OU (08:27)
[2017-07-23] MEDS: GABAPENTIN 400 MG CAP PO ×2 (08:27→21:25)
[2017-07-23] MEDS: SERTRALINE HCL 50 MG TAB PO (08:27)
[2017-07-23] MEDS: MULTIVITAMINS/MINERALS THERAP 1 TAB PO (08:27)
[2017-07-23] MEDS: MAGNESIUM OXIDE 400 MG TAB (MAG-OX) PO (08:28)
[2017-07-23] MEDS: PREPARATION H OINTMENT (HEMORRHOID) PR ×2 (08:28→21:00)
[2017-07-23] MEDS: oxyCODONE 5MG TAB PO ×3 (09:45→21:26)
[2017-07-23 12:09] LABS: BEDSIDE GLUCOSE 215 MG/DL (80-115)
[2017-07-23] MEDS: MIRALAX *UNIT DOSE* 17GM PACKET PO (21:00)
[2017-07-23] MEDS: BRIMONIDINE 0.15% OPHTH SOLN 5 ML OU (21:24)
[2017-07-23] MEDS: TAMSULOSIN 0.4 MG CAP PO (21:25)
[2017-07-23] MEDS: tiZANidine 4 MG TAB PO (21:25)
[2017-07-23] MEDS: LACTULOSE 20 GM/30 ML SYRUP UD PO (21:25)
[2017-07-24] MEDS: HEPARIN SOD (PORCINE) 5000 UNITS/ML VIAL SC ×3 (05:42→22:41)
[2017-07-24] MEDS: LEVOTHYROXINE 75MCG TABLET (0.075MG) PO (05:42)
[2017-07-24 06:07] LABS: BASO % 0.4 % (0.0-1.0); EOS % 1.1 % (0.0-3.0); HEMATOCRIT 25.2 % (42.0-52.0); HEMOGLOBIN 8.3 g/dl (14.0-18.0); IMMATURE GRANULOCYTE % 1.8 % (0-3.0); LYMPH # 0.3 10^3/uL (1.5-4.5); LYMPH % 11.6 % (24.0-44.0); MEAN CORPUSCULAR HEMOGLOBIN 32.9 pg (27.0-33.0); MEAN CORPUSCULAR HGB CONC 32.9 g/dl (32.0-36.5); MONO # 0.1 10^3/uL (0.0-0.8); MONO % 4.2 % (0.0-5.0); NEUTROPHILS # 2.3 10^3/uL (1.8-7.7); NEUTROPHILS % 80.9 % (36.0-66.0); PLATELET COUNT, AUTOMATED 106 10^3/uL (150-450); RED BLOOD COUNT 2.52 10^6/uL (4.30-6.10); RED CELL DISTRIBUTION WIDTH 17.4 % (11.5-14.5); WHITE BLOOD COUNT 2.8 10^3/uL (4.0-10.0)
[2017-07-24 06:25] LABS: ANION GAP 7 MEQ/L (8-16); BLOOD UREA NITROGEN 16 MG/DL (7-18); CALCIUM LEVEL 8.2 MG/DL (8.8-10.2); CARBON DIOXIDE LEVEL 25 MEQ/L (21-32); CHLORIDE LEVEL 109 MEQ/L (98-107); CREATININE FOR GFR 0.71 MG/DL (0.70-1.30); GLOMERULAR FILTRATION RATE > 60.0 (>49); GLUCOSE, FASTING 140 MG/DL (70-100); MAGNESIUM LEVEL 2.6 MG/DL (1.8-2.4); POTASSIUM SERUM 3.6 MEQ/L (3.5-5.1); SODIUM LEVEL 141 MEQ/L (136-145)
[2017-07-24] MEDS: LEVEMIR (INSULIN DETEMIR) 1 UNITS/0.01ML SC ×2 (10:21→22:40)
[2017-07-24] MEDS: HumaLOG INSULIN (NovoLOG) PER UNIT SC ×4 (10:21→22:41)
[2017-07-24] MEDS: MAGNESIUM OXIDE 400 MG TAB (MAG-OX) PO (10:23)
[2017-07-24] MEDS: oxyBUTYnin *DITROPAN XL* 5 MG TABCR PO (10:24)
[2017-07-24] MEDS: SERTRALINE HCL 50 MG TAB PO (10:24)
[2017-07-24] MEDS: MULTIVITAMINS/MINERALS THERAP 1 TAB PO (10:25)
[2017-07-24] MEDS: GABAPENTIN 400 MG CAP PO ×2 (10:25→22:39)
[2017-07-24] MEDS: FAMOTIDINE 20 MG TAB PO ×2 (10:25→22:39)
[2017-07-24] MEDS: FOLIC ACID 1 MG TAB PO (10:25)
[2017-07-24] MEDS: predniSONE 20 MG TAB PO (10:25)
[2017-07-24] MEDS: TIMOLOL MALEATE 0.5% OPHTH SOLN 5 ML OU (10:26)
[2017-07-24] MEDS: PREPARATION H OINTMENT (HEMORRHOID) PR ×2 (14:16→22:41)
[2017-07-24] MEDS: oxyCODONE 5MG TAB PO (14:20)
[2017-07-24] MEDS: cefTRIAXone SOD 2 GM in D5W MINI-BAG PLUS 50 ML IV (15:21)
[2017-07-24] MEDS: AMPICILLIN SOD 2 GM in D5W MINI-BAG PLUS 100 ML IV ×3 (17:09→23:38)
[2017-07-24 17:10] LABS: BEDSIDE GLUCOSE 270 MG/DL (80-115)
[2017-07-24] MEDS: LACTULOSE 20 GM/30 ML SYRUP UD PO (21:00)
[2017-07-24] MEDS: MIRALAX *UNIT DOSE* 17GM PACKET PO (21:00)
[2017-07-24 21:04] LABS: BEDSIDE GLUCOSE 323 MG/DL (80-115)
[2017-07-24] MEDS: TAMSULOSIN 0.4 MG CAP PO (22:38)
[2017-07-24] MEDS: tiZANidine 4 MG TAB PO (22:39)
[2017-07-24] MEDS: BRIMONIDINE 0.15% OPHTH SOLN 5 ML OU (22:41)
[2017-07-25] MEDS: cefTRIAXone SOD 2 GM in D5W MINI-BAG PLUS 50 ML IV ×2 (02:46→15:04)
[2017-07-25] MEDS: AMPICILLIN SOD 2 GM in D5W MINI-BAG PLUS 100 ML IV ×5 (04:07→19:58)
[2017-07-25] MEDS: HEPARIN SOD (PORCINE) 5000 UNITS/ML VIAL SC ×3 (05:56→21:26)
[2017-07-25] MEDS: LEVOTHYROXINE 75MCG TABLET (0.075MG) PO (05:56)
[2017-07-25 06:04] LABS: BASO % 0.2 % (0.0-1.0); EOS # 0.1 10^3/uL (0.0-0.50); EOS % 1.2 % (0.0-3.0); HEMATOCRIT 24.9 % (42.0-52.0); HEMOGLOBIN 8.1 g/dl (14.0-18.0); LYMPH # 0.4 10^3/uL (1.5-4.5); LYMPH % 8.8 % (24.0-44.0); MEAN CORPUSCULAR HEMOGLOBIN 31.8 pg (27.0-33.0); MEAN CORPUSCULAR HGB CONC 32.5 g/dl (32.0-36.5); MEAN CORPUSCULAR VOLUME 97.6 fl (80.0-96.0); MONO # 0.2 10^3/uL (0.0-0.8); MONO % 4.6 % (0.0-5.0); NEUTROPHILS # 3.5 10^3/uL (1.8-7.7); NEUTROPHILS % 84.2 % (36.0-66.0); PLATELET COUNT, AUTOMATED 115 10^3/uL (150-450); RED BLOOD COUNT 2.55 10^6/uL (4.30-6.10); RED CELL DISTRIBUTION WIDTH 17.4 % (11.5-14.5); WHITE BLOOD COUNT 4.1 10^3/uL (4.0-10.0)
[2017-07-25 06:18] LABS: ANION GAP 7 MEQ/L (8-16); BLOOD UREA NITROGEN 13 MG/DL (7-18); C REACTIVE PROTEIN QUANTITATIV 2.31 MG/DL (0.00-0.30); CALCIUM LEVEL 8.1 MG/DL (8.8-10.2); CARBON DIOXIDE LEVEL 24 MEQ/L (21-32); CHLORIDE LEVEL 110 MEQ/L (98-107); CREATININE FOR GFR 0.71 MG/DL (0.70-1.30); GLOMERULAR FILTRATION RATE > 60.0 (>49); GLUCOSE, FASTING 149 MG/DL (70-100); MAGNESIUM LEVEL 2.7 MG/DL (1.8-2.4); POTASSIUM SERUM 3.5 MEQ/L (3.5-5.1); SODIUM LEVEL 141 MEQ/L (136-145)
[2017-07-25 06:28] LABS: ERYTHROCYTE SEDIMENTATION RATE 128 mm/hr (0-20)
[2017-07-25] MEDS: FENTANYL REMOVAL DOCUMENTATION MISC XX (08:24)
[2017-07-25] MEDS: HumaLOG INSULIN (NovoLOG) PER UNIT SC ×4 (08:29→21:00)
[2017-07-25] MEDS: fentaNYL 75 MCG/HR PATCH TOP (08:29)
[2017-07-25] MEDS: LEVEMIR (INSULIN DETEMIR) 1 UNITS/0.01ML SC ×2 (08:30→19:59)
[2017-07-25] MEDS: TIMOLOL MALEATE 0.5% OPHTH SOLN 5 ML OU (08:30)
[2017-07-25] MEDS: SERTRALINE HCL 50 MG TAB PO (09:00)
[2017-07-25] MEDS: MAGNESIUM OXIDE 400 MG TAB (MAG-OX) PO (09:00)
[2017-07-25] MEDS: GABAPENTIN 400 MG CAP PO ×2 (09:00→19:58)
[2017-07-25] MEDS: predniSONE 20 MG TAB PO ×2 (09:00→19:58)
[2017-07-25] MEDS: MULTIVITAMINS/MINERALS THERAP 1 TAB PO (09:00)
[2017-07-25] MEDS: FOLIC ACID 1 MG TAB PO (09:00)
[2017-07-25] MEDS: oxyBUTYnin *DITROPAN XL* 5 MG TABCR PO (09:00)
[2017-07-25] MEDS: FAMOTIDINE 20 MG TAB PO ×2 (09:00→19:58)
[2017-07-25 12:08] LABS: BEDSIDE GLUCOSE 273 MG/DL (80-115)
[2017-07-25 12:08] LABS: BEDSIDE GLUCOSE 226 MG/DL (80-115)
[2017-07-25 12:08] LABS: BEDSIDE GLUCOSE 255 MG/DL (80-115)
[2017-07-25 12:47] LABS: BEDSIDE GLUCOSE 135 MG/DL (80-115)
[2017-07-25] MEDS: MORPHINE 4 MG/ML 1ML VIAL (J2270) IV (15:05)
[2017-07-25] MEDS ORDERED: fentaNYL 100 MCG/2 ML INJECTION (J3010) As Ordered (16:06)
[2017-07-25] MEDS ORDERED: LIDOCAINE 2% INJ 100 MG/5 ML SDV (FOR ANES.) As Ordered (16:06)
[2017-07-25] MEDS ORDERED: PROPOFOL 200 MG/20 ML VIAL As Ordered (16:06)
[2017-07-25] MEDS ORDERED: MIDAZOLAM INJ 2 MG/2 ML VIAL (J2250) As Ordered (16:06)
[2017-07-25] MEDS ORDERED: LIDOCAINE VISCOUS 2% SOLN 15ML UDC As Ordered (16:18)
[2017-07-25] MEDS: PREPARATION H OINTMENT (HEMORRHOID) PR ×2 (16:25→19:59)
[2017-07-25] MEDS: AMPICILLIN 1 GM VIAL As Ordered (17:00)
[2017-07-25] MEDS: CETACAINE SPRAY 5GM As Ordered (17:07)
[2017-07-25 17:41] LABS: BEDSIDE GLUCOSE 136 MG/DL (80-115)
[2017-07-25] MEDS ORDERED: METOCLOPRAMIDE INJ 10MG/2ML VIAL (J2765) IV (17:45)
[2017-07-25] MEDS ORDERED: ONDANSETRON 4MG/2ML VIAL (J2405) IV (17:45)
[2017-07-25] MEDS: LR 1,000 ML IV (18:56)
[2017-07-25 19:06] LABS: BEDSIDE GLUCOSE 121 MG/DL (80-115)
[2017-07-25] MEDS: tiZANidine 4 MG TAB PO (19:58)
[2017-07-25] MEDS: TAMSULOSIN 0.4 MG CAP PO (19:58)
[2017-07-25] MEDS: LACTULOSE 20 GM/30 ML SYRUP UD PO (19:58)
[2017-07-25] MEDS: BRIMONIDINE 0.15% OPHTH SOLN 5 ML OU (19:59)
[2017-07-25] MEDS: oxyCODONE 5MG TAB PO (20:01)
[2017-07-25] MEDS: MIRALAX *UNIT DOSE* 17GM PACKET PO (20:07)
[2017-07-25 20:30] LABS: BEDSIDE GLUCOSE 223 MG/DL (80-115)
[2017-07-26] MEDS: AMPICILLIN SOD 2 GM in D5W MINI-BAG PLUS 100 ML IV ×7 (00:21→23:59)
[2017-07-26] MEDS: cefTRIAXone SOD 2 GM in D5W MINI-BAG PLUS 50 ML IV ×2 (03:25→15:01)
[2017-07-26 05:39] LABS: BASO % 0.3 % (0.0-1.0); EOS % 0.3 % (0.0-3.0); HEMATOCRIT 26.3 % (42.0-52.0); HEMOGLOBIN 8.7 g/dl (13.5-17.5); IMMATURE GRANULOCYTE % 1.6 % (0-3.0); LYMPH % 4.9 % (24.0-44.0); MEAN CORPUSCULAR HEMOGLOBIN 32.5 pg (27.0-33.0); MEAN CORPUSCULAR HGB CONC 33.1 g/dl (32.0-36.5); MEAN CORPUSCULAR VOLUME 98.1 fl (80.0-96.0); MONO # 0.2 10^3/uL (0.0-0.8); MONO % 4.3 % (0.0-5.0); NEUTROPHILS # 3.3 10^3/uL (1.8-7.7); NEUTROPHILS % 88.6 % (36.0-66.0); PLATELET COUNT, AUTOMATED 104 10^3/uL (150-450); RED BLOOD COUNT 2.68 10^6/uL (4.30-6.10); RED CELL DISTRIBUTION WIDTH 17.4 % (11.5-14.5); WHITE BLOOD COUNT 3.7 10^3/uL (4.0-10.0)
[2017-07-26 05:45] LABS: LYMPH # 0.2 10^3/uL (1.5-4.5); POSITIVE DIFF POS FLAG
[2017-07-26 05:58] LABS: ANION GAP 4 MEQ/L (8-16); BLOOD UREA NITROGEN 9 MG/DL (7-18); CALCIUM LEVEL 8.4 MG/DL (8.8-10.2); CARBON DIOXIDE LEVEL 26 MEQ/L (21-32); CHLORIDE LEVEL 111 MEQ/L (98-107); CREATININE FOR GFR 0.67 MG/DL (0.70-1.30); GLOMERULAR FILTRATION RATE > 60.0 (>49); GLUCOSE, FASTING 167 MG/DL (70-100); MAGNESIUM LEVEL 2.3 MG/DL (1.8-2.4); POTASSIUM SERUM 4.2 MEQ/L (3.5-5.1); SODIUM LEVEL 141 MEQ/L (136-145)
[2017-07-26] MEDS: HEPARIN SOD (PORCINE) 5000 UNITS/ML VIAL SC ×3 (06:06→20:30)
[2017-07-26] MEDS: LEVOTHYROXINE 75MCG TABLET (0.075MG) PO (06:06)
[2017-07-26] MEDS: HumaLOG INSULIN (NovoLOG) PER UNIT SC ×4 (08:23→20:20)
[2017-07-26] MEDS: LEVEMIR (INSULIN DETEMIR) 1 UNITS/0.01ML SC ×2 (08:25→20:30)
[2017-07-26] MEDS: predniSONE 20 MG TAB PO (08:25)
[2017-07-26] MEDS: FAMOTIDINE 20 MG TAB PO ×2 (08:25→20:29)
[2017-07-26] MEDS: SERTRALINE HCL 50 MG TAB PO (08:25)
[2017-07-26] MEDS: FOLIC ACID 1 MG TAB PO (08:25)
[2017-07-26] MEDS: PREPARATION H OINTMENT (HEMORRHOID) PR ×2 (08:26→20:30)
[2017-07-26] MEDS: MAGNESIUM OXIDE 400 MG TAB (MAG-OX) PO (08:26)
[2017-07-26] MEDS: oxyBUTYnin *DITROPAN XL* 5 MG TABCR PO (08:26)
[2017-07-26] MEDS: MULTIVITAMINS/MINERALS THERAP 1 TAB PO (08:26)
[2017-07-26] MEDS: TIMOLOL MALEATE 0.5% OPHTH SOLN 5 ML OU (08:26)
[2017-07-26] MEDS: GABAPENTIN 400 MG CAP PO ×2 (08:28→20:29)
[2017-07-26] MEDS: oxyCODONE 5MG TAB PO ×2 (11:37→18:50)
[2017-07-26 11:59] LABS: BEDSIDE GLUCOSE 227 MG/DL (80-115)
[2017-07-26 17:48] LABS: BEDSIDE GLUCOSE 289 MG/DL (80-115)
[2017-07-26] MEDS: LACTULOSE 20 GM/30 ML SYRUP UD PO (20:28)
[2017-07-26] MEDS: MIRALAX *UNIT DOSE* 17GM PACKET PO (20:28)
[2017-07-26] MEDS: BRIMONIDINE 0.15% OPHTH SOLN 5 ML OU (20:29)
[2017-07-26] MEDS: tiZANidine 4 MG TAB PO (20:29)
[2017-07-26] MEDS: TAMSULOSIN 0.4 MG CAP PO (20:29)
[2017-07-27] MEDS: cefTRIAXone SOD 2 GM in D5W MINI-BAG PLUS 50 ML IV ×2 (03:08→14:19)
[2017-07-27] MEDS: AMPICILLIN SOD 2 GM in D5W MINI-BAG PLUS 100 ML IV ×4 (03:46→17:33)
[2017-07-27] MEDS: HEPARIN SOD (PORCINE) 5000 UNITS/ML VIAL SC ×2 (05:35→14:19)
[2017-07-27] MEDS: LEVOTHYROXINE 75MCG TABLET (0.075MG) PO (05:35)
[2017-07-27 05:52] LABS: BEDSIDE GLUCOSE 206 MG/DL (80-115)
[2017-07-27 08:45] LABS: BEDSIDE GLUCOSE 233 MG/DL (80-115)
[2017-07-27] MEDS: PREPARATION H OINTMENT (HEMORRHOID) PR (09:00)
[2017-07-27] MEDS: SERTRALINE HCL 50 MG TAB PO (09:18)
[2017-07-27] MEDS: MAGNESIUM OXIDE 400 MG TAB (MAG-OX) PO (09:18)
[2017-07-27] MEDS: FOLIC ACID 1 MG TAB PO (09:18)
[2017-07-27] MEDS: predniSONE 20 MG TAB PO (09:18)
[2017-07-27] MEDS: MULTIVITAMINS/MINERALS THERAP 1 TAB PO (09:18)
[2017-07-27] MEDS: GABAPENTIN 400 MG CAP PO (09:18)
[2017-07-27] MEDS: FAMOTIDINE 20 MG TAB PO (09:19)
[2017-07-27] MEDS: oxyBUTYnin *DITROPAN XL* 5 MG TABCR PO (09:19)
[2017-07-27] MEDS: LEVEMIR (INSULIN DETEMIR) 1 UNITS/0.01ML SC (09:20)
[2017-07-27] MEDS: TIMOLOL MALEATE 0.5% OPHTH SOLN 5 ML OU (09:21)
[2017-07-27] MEDS: HumaLOG INSULIN (NovoLOG) PER UNIT SC ×3 (09:21→17:18)
[2017-07-27] MEDS: oxyCODONE 5MG TAB PO (10:32)
[2017-07-27 12:13] LABS: BEDSIDE GLUCOSE 189 MG/DL (80-115)
[2017-07-27 17:28] LABS: BEDSIDE GLUCOSE 289 MG/DL (80-115)
== END 2017-07-27 17:44 | disposition left against medical advice (07) | DRG 698 ==
LOC: M MSPAV 07-20 01:13 → M ED 16:10 → M ED INP 23:58
PROC: B24BZZ4 Ultrasonography of Heart with Aorta, Transesophageal (ICD-10-PCS; principal; 2017-07-25 17:00)
DX: T83.511A Infection and inflammatory reaction due to indwelling urethral catheter, initial encounter (principal); A41.9 Sepsis, unspecified organism; I33.0 Acute and subacute infective endocarditis; N17.9 Acute kidney failure, unspecified; D86.89 Sarcoidosis of other sites; F32.9 Major depressive disorder, single episode, unspecified; G47.33 Obstructive sleep apnea (adult) (pediatric); K21.9 Gastro-esophageal reflux disease without esophagitis; B95.2 Enterococcus as the cause of diseases classified elsewhere; Z96.0 Presence of urogenital implants; Z87.440 Personal history of urinary (tract) infections; Z99.89 Dependence on other enabling machines and devices; Z86.73 Personal history of transient ischemic attack (TIA), and cerebral infarction without residual deficits; Z96.652 Presence of left artificial knee joint; Z88.1 Allergy status to other antibiotic agents; Z79.4 Long term (current) use of insulin; Z79.52 Long term (current) use of systemic steroids; Z79.899 Other long term (current) drug therapy; Y82.9 Unspecified medical devices associated with adverse incidents

== ENCOUNTER → 2017-07-30 | Outpatient (REF) | payer MEDICARE, OTHER ==
[2017-07-30 17:52] LABS: C REACTIVE PROTEIN QUANTITATIV 1.64 MG/DL (0.00-0.30); IRON (FE) 40 UG/DL (65-175); PERCENT SATURATION 14.7 % (19.7-50.0); TOTAL IRON BINDING CAPACITY 272 UG/DL (250-450)
== END ==
LOC: M LAB REF 16:31
DX: A41.9 Sepsis, unspecified organism (principal); D64.9 Anemia, unspecified
CPT/HCPCS: 83550

== ENCOUNTER → 2017-08-13 | Outpatient (CLI) | payer MEDICARE, OTHER | LOC: M RAD 17:20 | DX: M51.26 Other intervertebral disc displacement, lumbar region (principal); M51.27 Other intervertebral disc displacement, lumbosacral region; M48.061 Spinal stenosis, lumbar region without neurogenic claudication; M12.88 Other specific arthropathies, not elsewhere classified, other specified site; M47.817 Spondylosis without myelopathy or radiculopathy, lumbosacral region | CPT/HCPCS: 72148 ==

== ENCOUNTER → 2017-09-17 | Outpatient (REF) | payer MEDICARE, OTHER ==
[2017-09-17 18:41] LABS: FERRITIN 220 NG/ML (26-388); IRON (FE) 30 UG/DL (65-175); PERCENT SATURATION 10.9 % (19.7-50.0); TOTAL IRON BINDING CAPACITY 276 UG/DL (250-450)
== END ==
LOC: M LAB REF 16:21
DX: D50.9 Iron deficiency anemia, unspecified (principal)
CPT/HCPCS: 83550

== ENCOUNTER → 2017-10-31 | Outpatient (REF) | payer MEDICARE, OTHER ==
[2017-10-31 15:07] LABS: HEMATOCRIT 24.9 % (42.0-52.0); HEMOGLOBIN 7.4 g/dl (13.5-17.5); MEAN CORPUSCULAR HEMOGLOBIN 27.7 pg (27.0-33.0); MEAN CORPUSCULAR HGB CONC 29.7 g/dl (32.0-36.5); MEAN CORPUSCULAR VOLUME 93.3 fl (80.0-96.0); PLATELET COUNT, AUTOMATED 143 10^3/uL (150-450); RED BLOOD COUNT 2.67 10^6/uL (4.30-6.10); RED CELL DISTRIBUTION WIDTH 18.6 % (11.5-14.5); WHITE BLOOD COUNT 12.2 10^3/uL (4.0-10.0)
[2017-10-31 15:11] LABS: POS COUNT POS FLAG; POSITIVE MORPH POS FLAG
[2017-10-31 15:12] LABS: ADD MANUAL DIFFER YES; DIFF SLIDE NUMBER 294
[2017-10-31 15:29] LABS: ALBUMIN 1.9 GM/DL (3.2-5.2); ALBUMIN/GLOBULIN RATIO 0.58 (1.00-1.93); ALKALINE PHOSPHATASE 88 U/L (45-117); ALT/SGPT 13 U/L (12-78); ANION GAP 11 MEQ/L (8-16); AST/SGOT 17 U/L (7-37); BILIRUBIN,TOTAL 0.2 MG/DL (0.2-1.0); BLOOD UREA NITROGEN 11 MG/DL (7-18); C REACTIVE PROTEIN QUANTITATIV 2.91 MG/DL (0.00-0.30); CALCIUM LEVEL 7.8 MG/DL (8.8-10.2); CARBON DIOXIDE LEVEL 17 MEQ/L (21-32); CHLORIDE LEVEL 115 MEQ/L (98-107); CPK CREATINE PHOSPHOKINASE 18 U/L (39-308); CREATININE FOR GFR 0.79 MG/DL (0.70-1.30); GLOMERULAR FILTRATION RATE > 60.0 (>49); GLUCOSE, FASTING 107 MG/DL (70-100); POTASSIUM SERUM 3.7 MEQ/L (3.5-5.1); SODIUM LEVEL 143 MEQ/L (136-145); TOTAL PROTEIN 5.2 GM/DL (6.4-8.2)
[2017-10-31 15:34] LABS: BANDS 1 % (< 11); BASOPHILS 1 % (0-4); LYMPHOCYTES 6 % (16-52); METAMYELOCYTES 1 % (0-0); MONOCYTES 5 % (0-8); NEUTROPHILS 86 % (35-75); PLATELET ESTIMATE DECREASED (NORMAL)
[2017-10-31 15:35] LABS: ANISOCYTOSIS 2+
[2017-10-31 15:43] LABS: ERYTHROCYTE SEDIMENTATION RATE 105 mm/hr (0-20)
== END ==
LOC: M LAB REF 14:55
DX: Z00.00 Encounter for general adult medical examination without abnormal findings (principal)
CPT/HCPCS: 82550

== ENCOUNTER 2017-11-10 12:17 | Emergency (ER) | payer MEDICARE, OTHER ==
[2017-11-10] MEDS ORDERED: CALCIUM CHLORIDE 10% 1 GM/10 ML SYR (12:18)
[2017-11-10] MEDS ORDERED: ATROPINE SULF 1MG/10ML SYRINGE (J0461) (12:18)
[2017-11-10] MEDS ORDERED: DOPamine 400 MG/500 ML BAG IN D5W (800MCG/ML) (J1265) (12:18)
[2017-11-10] MEDS ORDERED: EPINEPHrine 1MG/10ML SYRINGE 1.5IN (12:18)
[2017-11-10] MEDS ORDERED: SODIUM BICARBONATE 8.4% INJ 50 ML SYRINGE (12:18)
[2017-11-10] MEDS ORDERED: SODIUM BICARBONATE 4.2% INJ 10 ML SYRINGE (12:18)
[2017-11-10] MEDS: EPINEPHrine 1MG/10ML SYRINGE 1.5IN IV ×8 (12:23→15:52)
[2017-11-10] MEDS ORDERED: EPINEPHrine 1MG/10ML SYRINGE 1.5IN As Ordered (12:28)
[2017-11-10] MEDS: SODIUM BICARBONATE 8.4% INJ 50 ML SYRINGE IV ×3 (12:29→15:50)
[2017-11-10] MEDS: ATROPINE SULF 1MG/10ML SYRINGE (J0461) IV ×2 (12:37→12:46)
[2017-11-10] MEDS ORDERED: EPINEPHrine INJ 1 MG/ML 1ML AMP As Ordered (12:43)
[2017-11-10] MEDS ORDERED: EPINEPHrine HCL INJ 1 MG in D5W 240 ML IV (13:00)
[2017-11-10] MEDS: DOPamine HCL 400 MG in APPROPRIATE DILUENT 1 EA IV (13:00)
[2017-11-10 13:01] LABS: HEMATOCRIT 23.1 % (42.0-52.0); MEAN CORPUSCULAR HEMOGLOBIN 27.8 pg (27.0-33.0); MEAN CORPUSCULAR HGB CONC 26.8 g/dl (32.0-36.5); MEAN CORPUSCULAR VOLUME 103.6 fl (80.0-96.0); PLATELET COUNT, AUTOMATED 280 10^3/uL (150-450); RED BLOOD COUNT 2.23 10^6/uL (4.30-6.10); RED CELL DISTRIBUTION WIDTH 20.6 % (11.5-14.5)
[2017-11-10 13:04] LABS: POS COUNT POS FLAG; POSITIVE DIFF POS FLAG; POSITIVE MORPH POS FLAG
[2017-11-10 13:06] LABS: WHITE BLOOD COUNT 31.3 10^3/uL (4.0-10.0)
[2017-11-10 13:07] LABS: HEMOGLOBIN 6.2 g/dl (13.5-17.5)
[2017-11-10 13:08] LABS: ADD MANUAL DIFFER YES; DIFF SLIDE NUMBER 134
[2017-11-10 13:13] LABS: ALBUMIN 1.9 GM/DL (3.2-5.2); ALBUMIN/GLOBULIN RATIO 0.54 (1.00-1.93); ALKALINE PHOSPHATASE 114 U/L (45-117); ALT/SGPT 259 U/L (12-78); ANION GAP 15 MEQ/L (8-16); AST/SGOT 386 U/L (7-37); BILIRUBIN,TOTAL 0.2 MG/DL (0.2-1.0); BLOOD UREA NITROGEN 17 MG/DL (7-18); C REACTIVE PROTEIN QUANTITATIV 1.88 MG/DL (0.00-0.30); CALCIUM LEVEL 8.1 MG/DL (8.8-10.2); CARBON DIOXIDE LEVEL 14 MEQ/L (21-32); CHLORIDE LEVEL 108 MEQ/L (98-107); CPK CREATINE PHOSPHOKINASE 208 U/L (39-308); CREATININE FOR GFR 1.46 MG/DL (0.70-1.30); GLOMERULAR FILTRATION RATE 51.1 (>49); GLUCOSE, FASTING 388 MG/DL (70-100); MAGNESIUM LEVEL 3.3 MG/DL (1.8-2.4); SODIUM LEVEL 137 MEQ/L (136-145); TOTAL PROTEIN 5.4 GM/DL (6.4-8.2); TROPONIN I 0.37 NG/ML (< 0.10)
[2017-11-10 13:14] LABS: CK-MB VALUE MASS 2.4 NG/ML (<3.6); MB/CK RELATIVE INDEX 1.15 (< OR =4)
[2017-11-10 13:18] LABS: POTASSIUM SERUM 9.1 MEQ/L (3.5-5.1)
[2017-11-10] MEDS: CALCIUM CHLORIDE 10% 1 GM in D5W 100 ML IV (13:20)
[2017-11-10] MEDS: MEROPENEM INJ 1 GM in APPROPRIATE DILUENT 1 EA IV (13:30)
[2017-11-10] MEDS ORDERED: NOREPINEPHRINE BITARTRATE 16 MG in D5W 484 ML IV (13:30)
[2017-11-10] MEDS: VANCOMYCIN HCL 1,000 MG, VIAL MATE ADAPTER 1 EACH in D5W 250 ML IV (13:30)
[2017-11-10] MEDS: HumuLIN R (REGULAR) INSULIN (NovoLIN R) **100U/ML** PER UNIT SC (13:33)
[2017-11-10] MEDS: DEXTROSE 50% 50 ML SYRINGE IV (13:33)
[2017-11-10 13:37] LABS: ABG BASE EXCESS -22.9 (-2.0-2.0); ABG HCO3 8.9 MEQ/L (22.0-26.0); ABG O2 SATURATION 90.4 % (95.0-99.0); ABG PARTIAL PRESSURE CO2 54.4 mmHg (35.0-45.0); ABG PARTIAL PRESSURE O2 99.6 mmHg (75.0-100.0); ABG STANDARD HCO3 6.8 MEQ/L (22.0-26.0); ABG TOTAL CO2 10.6 MEQ/L (23.0-31.0)
[2017-11-10 13:40] LABS: ABG pH (ARTERIAL) 6.832 UNITS (7.350-7.450)
[2017-11-10] MEDS: NOREPINEPHRINE BITARTRATE 16 MG in D5W 484 ML IV ×2 (13:56→14:00)
[2017-11-10] MEDS: SODIUM BICARBONATE 150 MEQ in D5W 1,000 ML IV (13:57)
[2017-11-10] MEDS ORDERED: VASOPRESSIN INJ 20 UNITS/ML VIAL As Ordered (14:08)
[2017-11-10 14:14] LABS: ATYPICAL LYMPH 3 % (0-5); BANDS 1 % (< 11); LYMPHOCYTES 26 % (16-52); MONOCYTES 3 % (0-8); MYELOCYTES 1 % (0-0); NEUTROPHILS 66 % (35-75); PLATELET ESTIMATE NORMAL (NORMAL); POLYCHROMASIA 1+
[2017-11-10 14:15] LABS: ANISOCYTOSIS 2+; POIKILOCYTOSIS 1+
[2017-11-10] MEDS: VASOPRESSIN INJ 20 UNITS in NS 500 ML IV (14:15)
[2017-11-10 14:23] LABS: HEMATOCRIT 19.6 % (42.0-52.0); MEAN CORPUSCULAR HEMOGLOBIN 28.2 pg (27.0-33.0); MEAN CORPUSCULAR HGB CONC 25.5 g/dl (32.0-36.5); MEAN CORPUSCULAR VOLUME 110.7 fl (80.0-96.0); PLATELET COUNT, AUTOMATED 186 10^3/uL (150-450); RED BLOOD COUNT 1.77 10^6/uL (4.30-6.10); RED CELL DISTRIBUTION WIDTH 20.8 % (11.5-14.5)
[2017-11-10 14:27] LABS: POS COUNT POS FLAG
[2017-11-10 14:28] LABS: WHITE BLOOD COUNT 44.4 10^3/uL (4.0-10.0)
[2017-11-10 14:46] LABS: ANION GAP 24 MEQ/L (8-16); BLOOD UREA NITROGEN 17 MG/DL (7-18); CALCIUM LEVEL 7.2 MG/DL (8.8-10.2); CARBON DIOXIDE LEVEL 12 MEQ/L (21-32); CHLORIDE LEVEL 96 MEQ/L (98-107); CREATININE FOR GFR 1.74 MG/DL (0.70-1.30); GLOMERULAR FILTRATION RATE 41.7 (>49); MAGNESIUM LEVEL 2.8 MG/DL (1.8-2.4); SODIUM LEVEL 132 MEQ/L (136-145)
[2017-11-10 14:48] LABS: GLUCOSE, FASTING 775 MG/DL (70-100)
[2017-11-10 14:50] LABS: LACTIC ACID SEPSIS PROTOCOL 14.3 MMOL/L (0.4-2.0)
[2017-11-10 14:50] LABS: POTASSIUM SERUM 7.4 MEQ/L (3.5-5.1)
== END 2017-11-10 16:54 | disposition expired ==
LOC: M ED 12:17
DX: I46.9 Cardiac arrest, cause unspecified (principal); E87.5 Hyperkalemia; R78.81 Bacteremia; E11.9 Type 2 diabetes mellitus without complications; D86.89 Sarcoidosis of other sites; M48.00 Spinal stenosis, site unspecified; G47.33 Obstructive sleep apnea (adult) (pediatric); Z79.2 Long term (current) use of antibiotics
CPT/HCPCS: J1265